=== PATIENT | female | born 1960 | race Caucasian/White ===

== ENCOUNTER → 2022-01-31 07:48 | Outpatient (BNVA) | payer OTHER, SELFPAY | PROVIDERS: PCP Internal Medicine Medical Oncology; Referring Provider Internal Medicine Medical Oncology; Visit Provider Nurse Practitioner ==

== ENCOUNTER 2022-02-13 06:21 | Outpatient (REF) | payer OTHER, SELFPAY ==
[2022-02-13 06:36] LABS: MANUAL DIFF FLAG NO
[2022-02-13 07:21] LABS: Basophils Absolute Auto 0.1 X10*3/uL (0.0-0.2); Basophils Percent Auto 0.9 % (0-2); Eosinophils Absolute Auto 0.1 X10*3/uL (0.0-0.4); Eosinophils Percent Auto 1.9 % (0-4); Hematocrit 40.3 % (37.0-47.0); Hemoglobin 13.3 g/dl (12.0-16.0); Imm Gran Abs Auto 0.01 X10*3/uL (0.00-0.03); Imm Gran Pct Auto 0.2 % (0.0-0.4); Lymphocytes Absolute Auto 2.6 X10*3/uL (1.2-4.9); Lymphocytes Percent Auto 44.9 % (20-40); Mean Corpuscular Hemoglobin 30.9 pg (27.0-33.0); Mean Corpuscular Volume 93.7 fL (80.0-98.0); Mean Platelet Volume 9.3 fL (9.4-12.3); Monocytes Absolute Auto 0.5 X10*3/uL (0.1-1.2); Monocytes Percent Auto 9.1 % (2-11); Neutrophils Absolute Auto 2.5 x10*3/uL (2.0-8.3); Platelet Count 320 X10*3/uL (160-400); Red Cell Distribution Width 11.8 % (11.0-16.0); White Blood Count 5.8 X10*3/uL (4.8-10.8)
[2022-02-13 08:00] LABS: Alanine Aminotransferase 17 U/L (0-31); Albumin Level 4.1 g/dL (3.5-5.0); Alkaline Phosphatase 59 U/L (39-117); Anion Gap 9 (12-20); Aspartate Amino Transferase 15 U/L (5-31); Bilirubin Total 0.8 mg/dL (0.0-1.0); Blood Urea Nitrogen 21 mg/dL (9-16); Calcium 9.8 mg/dL (8.4-10.2); Carbon Dioxide 30 mmol/L (22-29); Chloride 105 mmol/L (96-108); Estimated Glomerular Filt Rate > 60; Glucose Random 86 mg/dL (60-115); Potassium 4.4 mmol/L (3.3-5.1); Sodium 140 mmol/L (135-145); Total Protein 6.8 g/dL (6.5-8.0)
== END 2022-02-13 06:22 | disposition home or self-care (01) ==
LOC: HO.LAB 06:21
PROVIDERS: PCP Internal Medicine Medical Oncology; Visit Provider Nurse Practitioner
DX: Z12.11 Encounter for screening for malignant neoplasm of colon (principal)
CPT/HCPCS: 36415; 80053; 85025

== ENCOUNTER 2022-08-22 08:56 | Day surgery (SDC) | payer OTHER, SELFPAY ==
[2022-08-19 15:05] VITALS: BMI 25.6
--- NOTE | 2022-08-21 12:14 | P.CONAN_ITS ---
Documented by User: Lida Manzano NP 08/21/22 12:14 HPI - Anesthesia Eval Consult details Narrative: 61yo F for Colonoscopy PMFSH Active Problems Active Problems: All Active Problems (Updated 08/19/22 @ 15:03 by Claudine Crawford RN) ADHD (Acute) Depression (Acute) History of skin cancer (Acute) Nephrolithiasis (Acute) Overweight (Acute) Colon cancer screening (Acute) Family history of polyps in the colon (Acute) Past Medical History Medical History (Updated 08/19/22 @ 15:03 by Claudine Crawford RN) ADHD Depression Nephrolithiasis Skin cancer Surgical History Surgical History (Updated 08/19/22 @ 15:02 by Claudine Crawford RN) H/O breast biopsy H/O colonoscopy H/O cone biopsy of cervix H/O local excision of skin lesion Social History Social History Are you a primary health care law specialist to a significant other at home: Yes (daughter) Do you presently have visiting nurse or other home services: No Patient Tobacco Use Status: Former Tobacco user Quit Date: 25 yrs Use of substances other than those prescribed or required for medical reasons: No Have you been hit, kicked, punched, or otherwise hurt by someone within the past year? If so, by whom?: No Are you DNR?: No Advance Directives: No Advance Directives Information Provided: Yes Recently lost weight without trying: No Nutrition Risks: No Nutritional Risk Patient : No Meds Allergies Allergy/AdvReac Type Severity Reaction Status Date / Time morphine [MORPHINE] Allergy Intermediate HIVES Verified 08/19/22 15:02 Home Medications Medication Instructions Recorded Confirmed Last Taken Type cholecalciferol (vitamin D3) 125 125 mcg PO DAILY 01/31/22 Unknown History mcg (5,000 unit) capsule citalopram 10 mg tablet 10 mg PO DAILY 01/31/22 Unknown History multivitamin 1 tab PO DAILY 01/31/22 Unknown History vitamin B complex (B 1 tab PO DAILY 01/31/22 Unknown History Complex-Vitamin B12 tablet) Exam Exam Date and Time: August 21, 2022 1214 Height,Weight and Vital Signs: Height 5 ft 8.5 in Weight 77.564 kg Assessment and Plan Assessment Anesthesia Assessment: Chart Reviewed Documented by User: Yomaira Felix MD 08/22/22 10:09 [facility] Past Medical History Medical History (Updated 08/19/22 @ 15:03 by Claudine Crawford, [place]) ADHD Depression Nephrolithiasis Skin cancer Family History Family history of problems with anesthesia: No Surgical History Surgical History (Updated 08/19/22 @ 15:02 by Claudine Crawford, [place]) H/O breast biopsy H/O colonoscopy H/O cone biopsy of cervix H/O local excision of skin lesion History of Problems with Anesthesia: No Social History Social History Are you a primary health care law specialist to a significant other at home: Yes (daughter) Do you presently have visiting nurse or other home services: No Patient Tobacco Use Status: Former Tobacco user Quit Date: 25 yrs Use of substances other than those prescribed or required for medical reasons: No Have you been hit, kicked, punched, or otherwise hurt by someone within the past year? If so, by whom?: No Are you DNR?: No Advance Directives: No Advance Directives Information Provided: Yes Recently lost weight without trying: No Nutrition Risks: No Nutritional Risk Patient : No Meds Allergies Allergy/AdvReac Type Severity Reaction Status Date / Time morphine [MORPHINE] Allergy Intermediate HIVES Verified 08/19/22 15:02 Home Medications Medication Instructions Recorded Confirmed Last Taken Type cholecalciferol (vitamin D3) 125 125 mcg PO DAILY 01/31/22 Unknown History mcg (5,000 unit) capsule citalopram 10 mg tablet 10 mg PO DAILY 01/31/22 Unknown History multivitamin 1 tab PO DAILY 01/31/22 Unknown History vitamin B complex (B 1 tab PO DAILY 01/31/22 Unknown History Complex-Vitamin B12 tablet) Exam Airway Mallampati Class: II (Multiole caps throughout) TM Dist: >3cm Neck ROM: Full Heart: rrr Lungs: cta Assessment and Plan Assessment Anesthesia Assessment: Anesthesia Plan Discussed Final Anesthetic Review Family History of Problems with Anesthesia: No History of Problems with Anesthesia: No NPO: Yes ASA Class: II Final Preanesthetic Review: No Changes in Pt Med Stat, Meds/Allgs Chart Reviewed and Consent Obtained/Reviewed Patient Risk: Intermediate Procedure Risk: Intermediate Anesthetic Plan Anesthetic Plan: MAC: Disposition: Standard PACU
[2022-08-22] VITALS (9 sets, daily range): BP systolic 102–140; BP diastolic 50–92; PULSE 45–56; RESP 11–19; TEMP 36.2–37.3; O2SAT 97–100
--- NOTE | ~2022-08-22 | XR_ITS ---
EXAMINATION: XR ABDOMEN KUB CLINICAL INDICATION: Pain post colonoscopy COMPARISON: None TECHNIQUE: AP view of the abdomen. FINDINGS: The small and large bowel are slightly distended and filled with air. No free air is seen. There are biopsy clips projecting over the mid right colon and left distal colon. No calcifications are seen. Bony structures are unremarkable. XR/XR KUB IMPRESSION: No evidence of free air. Distended air-filled small and large bowel.
--- NOTE | ~2022-08-22 | XR_ITS ---
EXAMINATION: XR CHEST CLINICAL INFORMATION: Pain post colonoscopy. Rule out free air. COMPARISON: None TECHNIQUE: Frontal view of the chest was obtained. FINDINGS: No significant abnormality is noted involving the heart, lungs, mediastinum, bony thorax or soft tissues. No free air. XR/XR chest 1V IMPRESSION: Unremarkable examination.
--- NOTE | 2022-08-22 09:15 | MHC.SHP ---
Pre-Procedural Eval Section A Date of Service: 08/22/22 The patient is an INPATIENT: No The History & Physical has been completed within 30 days and I have reviewed it.: No Section B Chief Complaint: screening Details of Present Illness: Colon cancer screening, family history of colon polyps Relevant Family History (Specify if Yes): Yes Relevant Social History: None Present Medications: see Short Stay Collaborative assessment Medical History: Significant History (ADHD, depression, nephrolithiasis, history of skin cancer) History of Previous Operations: Relevant previous surgery/procedure and date(s) (H/O breast biopsy H/O cone biopsy of cervix H/O local excision of skin lesion) Allergies: Allergies Allergy/AdvReac Type Severity Reaction Status Date / Time morphine [MORPHINE] Allergy Intermediate HIVES Verified 08/19/22 15:02 Review of Systems Sugical H&P ROS: Negative: Constitution, Cardiovascular, Respiratory and Gastrointestinal Exam Surgical H&P Exam: Normal: Heart, Normal: Lungs, Normal: Extremities and Normal: Abdomen Plan Diagnosis/Plan: Unchanged I have reviewed the history and physical and performed a pertinent physical examination on my patient. No changes have occurred unless specified.
--- NOTE | 2022-08-22 10:15 | W.PM.OPN ---
Operative Note Operative Note Date of Service: 08/22/22 Narrative: Pre-op diagnosis: Colon cancer screening, family history of colon polyps - brother at age 50 yrs Post-op diagnosis:?other (Colon polyps, diverticulosis, hemorrhoids) Procedure: COLONOSCOPY TILL CECUM WITH BIOPSIES, SNARE POLYPECTOMY, SUBMUCOSAL INJECTION AND HEMOCLIP PLACEMENT Consent: Indications for the procedure and potential complications of bleeding, perforation, reaction to medications and missed diagnosis were discussed with the patient and informed consent was obtained. Instrument: Olympus PCF H 190 L variable stiffness pediatric colonoscope Monitoring: Vital signs and clinical assessment, intermittent blood pressure monitoring, continuous EKG monitoring, Pulse oximetry and Carbon Dioxide monitoring were done throughout the procedure. Colon withdrawl time was 28 minutes. Procedure: The patient was placed in the left lateral decubitis position and pre-procedure medications were administered. After a digital rectal examination of the ano-rectum, the video colonoscope was inserted into the rectum and advanced through the colon to the cecum. The colonoscope was slowly withdrawn in a retrograde panoramic fashion and the colon mucosa was carefully examined including a retroflexed view of the rectum. Findings and interventions are described below. Procedure Difficulty:? Colon was long and tortuous and there was some loop formation - no maneuvers required Findings: Terminal Ileum: Not evaluated Cecum:? Normal Ascending Colon:? A 4-5 mm sessile polyp removed with a cold bx. A 7-8 mm sessile polyp removed with a cold snare and polyp was not retrieved. A 2.5 cms flat polyp in the proximal AC?hepatic flexure at 80 cms raised with 3 cc of Orise solution and removed with a hot snare.? Polypectomy site was closed with resolution clip and marked with Rosalba ink. Transverse Colon:? A flat 2.5 to 3 cms polyp at 60 cms - raised with 5 cc of Orise solution and removed with a hot snare.? Polypectomy site was closed with 2 hemoclips and marked with Rosalba ink. Descending Colon:? Normal Sigmoid Colon:? A 10 mm sessile polyp removed with a hot snare. Moderate diverticulosis Rectum:? Normal Ano-rectum:? Small internal hemorrhoids Colon preparation: Good? Impression and Post Procedure Diagnosis: Colonoscopy Findings: Two small and three medium to large sized polyps removed Moderate diverticulosis seen in the sigmoid colon Small hemorrhoids on retroflexed exam. Of note:? CO2 tank became empty once cecum was reached and remainder of the procedure was performed using room air Plan: Await pathology results Patient has an appointment on 09/05/22 in the GI Clinic with? Felicitas Ochoa NP. Repeat Colonoscopy interval based on path results - in 1 year to check polypectomy sites in the ascending and transverse colon (if polyps are adenomatous) and 5 years if polyps are hyperplastic. Above findings were reviewed with the patient and colon polyps and diverticulosis handouts were given in the discharge area ADDENDUM: Pt complained of nausea, abdominal bloating and pain after procedure. KUB SHOWED: No evidence of free air. Distended air-filled small and large bowel. She was kept under observation in the PACU and abdominal pain gradually improved after pt was able to pass gas. Surgeon: Yasmine Degroot MD Anesthesia:?MAC (Dr Galicia) Was an Cloth Cutting Machine Operator used for this Procedure?:?Yes Cloth Cutting Machine Operator:?Jennyfer Nieves Estimated blood loss (mL):?0 Pathology:?other ( A. transverse colon polyp? B. ascending colon polyp? C. ascending colon polyp @ 80 cm? D. sigmoid polyp) Condition:?stable Disposition:?PACU
== END 2022-08-22 14:20 | disposition home or self-care (01) ==
PROVIDERS: PCP Internal Medicine Medical Oncology; Visit Provider Internal Medicine Gastroenterology
PROC: 0DJD8ZZ Inspection of Lower Intestinal Tract, Via Natural or Artificial Opening Endoscopic (ICD-10-PCS; CPT 45378; principal; 2022-08-22 10:00)
DX: Z12.11 Encounter for screening for malignant neoplasm of colon (principal); G89.18 Other acute postprocedural pain; R10.9 Unspecified abdominal pain; R14.0 Abdominal distension (gaseous); R11.0 Nausea; Z83.71 Family history of colonic polyps; D12.2 Benign neoplasm of ascending colon; D12.3 Benign neoplasm of transverse colon; K63.5 Polyp of colon; K57.30 Diverticulosis of large intestine without perforation or abscess without bleeding; K64.8 Other hemorrhoids; Z88.8 Allergy status to other drugs, medicaments and biological substances
CPT/HCPCS: 45385; 45380; 45381; 71045; 74018; 88305; J2405; J2550

== ENCOUNTER 2022-10-23 15:10 | Emergency (ER) | payer OTHER, SELFPAY ==
[2022-10-23 15:12] VITALS: BP 139/62; PULSE 84; RESP 18; TEMP 36.7; O2SAT 97; BMI 25.8
--- NOTE | 2022-10-23 15:55 | ED.GENADULT ---
HPI - General Adult General Chief complaint: General Medical <Kenyatta Ozuna LOIS - Last Filed: 10/23/22 16:39> Stated complaint: Severe rash biliteral legs ? cyst groin <Kenyatta OzunaLOIS - Last Filed: 10/23/22 16:39> Time Seen by Provider: 10/23/22 15:17 <Kenyatta OzunaLOIS - Last Filed: 10/23/22 16:39> Source: patient <Kenyatta Ozuna LOIS - Last Filed: 10/23/22 16:39> Mode of arrival: ambulatory <Kenyatta OzunaLOIS - Last Filed: 10/23/22 16:39> Limitations: no limitations <Kenyatta Ozuna LOIS - Last Filed: 10/23/22 16:39> History of Present Illness HPI narrative: Patient is a 62-year-old female presents emergency department for evaluation of a rash to the right medial calf. Initial onset was 5 days ago. Had a few small erythematous patches to the leg at 1st. The following day she developed to vesicles which she on room. She started applying Neosporin to this area. She then developed a more extensive red and erythematous rash surrounding the initial 2 vesicles. States that she has used Neosporin in the past without any reaction. Two days ago she went to urgent care and received a prescription for oral prednisone taper, and fluocinonide cream. Despite the use of this over the past 2 days she states that the rash is not improving. It is described as itchy. Without any drainage. Denies fevers, chills, numbness or tingling. She does state that she was bit by a tick earlier in the month, she was started on a 21 day course of doxycycline which she is still currently taking. <Kenyatta OzunaLOIS - Last Filed: 10/23/22 16:39> Related Data Home medications: Home Medications Medication Instructions Recorded Confirmed cholecalciferol (vitamin D3) 125 125 mcg PO DAILY 01/31/22 mcg (5,000 unit) capsule citalopram 10 mg tablet 10 mg PO DAILY 01/31/22 multivitamin 1 tab PO DAILY 01/31/22 vitamin B complex (B 1 tab PO DAILY 01/31/22 Complex-Vitamin B12 tablet) Previous Rx's Medication Instructions Recorded cephalexin 500 mg capsule 500 mg PO QID 7 days #28 caps 10/23/22 <Kenyatta Ozuna CNP - Last Filed: 10/23/22 16:39> Allergies/adverse reactions: Allergies Allergy/AdvReac Type Severity Reaction Status Date / Time morphine [MORPHINE] Allergy Intermediate HIVES Verified 08/19/22 15:02 <Kenyatta Ozuna CNP - Last Filed: 10/23/22 16:39> Review of Systems Review of Systems: skin: Rash as noted in HPI <Kenyatta Ozuna CNP - Last Filed: 10/23/22 16:39> Yes all other systems are reviewed and are negative <Kenyatta Ozuna CNP - Last Filed: 10/23/22 16:39> [facility] Past Medical History Attestation statement: The following information was validated with the patient. <Kenyatta Ozuna CNP - Last Filed: 10/23/22 16:39> Source: old records reviewed <Kenyatta Ozuna CNP - Last Filed: 10/23/22 16:39> Medical History: Medical History ADHD Depression Nephrolithiasis Skin cancer <Kenyatta Ozuna CNP - Last Filed: 10/23/22 16:39> Surgical History: Surgical History H/O breast biopsy H/O colonoscopy H/O cone biopsy of cervix H/O local excision of skin lesion <Kenyatta Ozuna CNP - Last Filed: 10/23/22 16:39> Social History Social History: Social History Are you a primary regular senior care provider to a significant other at home: Yes (daughter) Do you presently have visiting nurse or other home services: No Patient Tobacco Use Status: Former Tobacco user Quit Date: 25 yrs Smoked in Last 30 Days: No Use of substances other than those prescribed or required for medical reasons: No Advance Directives: No Advance Directives Information Provided: No Patient : No <Kenyatta Ozuna CNP - Last Filed: 10/23/22 16:39> Physical Exam ED Vital Signs: Vital Signs - 24 hr 10/23/22 15:12 10/23/22 16:03 Temperature 98.0 F Pulse Rate 84 84 Respiratory Rate 18 20 Blood Pressure 139/62 134/74 Pulse Oximetry 97 95 Oxygen Delivery Method Room Air Room Air BMI result Body Mass Index 25.8 <Kenyatta Ozuna CNP - Last Filed: 10/23/22 16:39> Vital Signs - 24 hr 10/23/22 15:12 10/23/22 16:03 Temperature 98.0 F Pulse Rate 84 84 Respiratory Rate 18 20 Blood Pressure 139/62 134/74 Pulse Oximetry 97 95 Oxygen Delivery Method Room Air Room Air BMI result Body Mass Index 25.8 <Kranthi Ochoa MD - Last Filed: 10/23/22 16:18> Appearance: Alert.?Oriented to person, place and time. No acute distress.?Normal affect. Neck: Normal inspection.? Neck supple.?? CVS: Heart sounds normal. Normal heart rate and rhythm.? Pulses normal.?? Respiratory: No respiratory distress.? Lung sounds clear to auscultation bilaterally?? Abdomen: Soft and non-tender. Skin: Skin warm and dry.? Normal skin color.? Extremities: No lower extremity edema.? No calf ttp? Neuro: Moves all extremities spontaneously. Sensation intact bilaterally. Ambulates with normal steady gait. <Kenyatta Ozuna CNP - Last Filed: 10/23/22 16:39> Course Course Course Narrative: Patient is a 62-year-old female who presents emergency department for evaluation of a rash as described in HPI. Currently taking oral doxycycline, she is also currently prescribed oral and topical steroids. Rash concerning for appears most consistent with contact dermatitis. Self-limiting and benign. Afebrile without tachycardia, no signs of systemic toxicity. Discussed plan for cleansing, continued use of medications as currently prescribed, Reviewed worrisome signs and symptoms to return back to the emergency department for. Advised outpatient follow-up with primary care provider next week. <Kenyatta Ozuna CNP - Last Filed: 10/23/22 16:39> Reevaluation(s) Reevaluation #1: Patient with contact dermatitis will continue topical steroids and prednisone <Kranthi Ochoa MD - Last Filed: 10/23/22 16:18> Time: 16:18 <Kranthi Ochoa MD - Last Filed: 10/23/22 16:18> Medications Administered Discontinued Medications Generic Name Dose Route Start Last Admin Trade Name Freq PRN Reason Stop Dose Admin Cephalexin HCl 500 mg 10/23/22 15:55 10/23/22 16:04 Cephalexin 500 Mg Capsule PO 10/23/22 15:56 500 mg ONCE ONE Administration <Kenyatta Ozuna CNP - Last Filed: 10/23/22 16:39> Medications Administered Discontinued Medications Generic Name Dose Route Start Last Admin Trade Name Freq PRN Reason Stop Dose Admin Cephalexin HCl 500 mg 10/23/22 15:55 10/23/22 16:04 Cephalexin 500 Mg Capsule PO 10/23/22 15:56 500 mg ONCE ONE Administration <Kranthi Ochoa MD - Last Filed: 10/23/22 16:18> Medical Decision Making Medical Records Medical records reviewed: Yes I reviewed the patient's medical records. <Kenyatta Ozuna CNP - Last Filed: 10/23/22 16:39> Discharge Plan Discharge Clinical Impression: Contact dermatitis <Kenyatta Ozuna CNP - Last Filed: 10/23/22 16:39> Patient Disposition: Home, Self-Care <Kenyatta Ozuna CNP - Last Filed: 10/23/22 16:39> Instructions: Contact Dermatitis (ED) <Kenyatta Ozuna CNP - Last Filed: 10/23/22 16:39> Additional Instructions: Gently cleanse the skin with warm water and mild non scented soap twice daily. Continue taking oral steroids as prescribed, the only ointment that should be applied is the topical steroid cream after cleansing. Leave it open to air. Please follow-up with your primary care provider next week for re-evaluation. You may return to emergency department with any new or worsening symptoms or concerns. <Kenyatta Ozuna CNP - Last Filed: 10/23/22 16:39> Prescriptions: New cephalexin 500 mg capsule 500 mg PO QID 7 Days Qty: 28 0RF No Action citalopram 10 mg tablet 10 mg PO DAILY multivitamin Tablet 1 tab PO DAILY cholecalciferol (vitamin D3) 125 mcg (5,000 unit) capsule 125 mcg PO DAILY vitamin B complex [B Complex-Vitamin B12] Tablet 1 tab PO DAILY <Kenyatta Ozuna CNP - Last Filed: 10/23/22 16:39> Referrals: Odilon Jordan MD [Primary Care Provider] - <Kenyatta Ozuna CNP - Last Filed: 10/23/22 16:39>
[2022-10-23 16:03] VITALS: BP 134/74; PULSE 84; RESP 20; O2SAT 95
[2022-10-23] MEDS: cephALEXin 500 MG CAPSULE PO (16:04)
== END 2022-10-23 16:42 | disposition home or self-care (01) ==
PROVIDERS: Emergency Provider Emergency Medicine; PCP Internal Medicine Medical Oncology
DX: L25.9 Unspecified contact dermatitis, unspecified cause (principal); Z87.891 Personal history of nicotine dependence; Z85.828 Personal history of other malignant neoplasm of skin
CPT/HCPCS: 99283; 99284

== ENCOUNTER 2024-05-08 13:52 | Emergency (ER) | payer OTHER, SELFPAY ==
--- NOTE | ~2024-05-08 | CT_ITS ---
EXAMINATION: CT HEAD WITHOUT CONTRAST CT CERVICAL SPINE WITHOUT CONTRAST CLINICAL INFORMATION: Fall with head strike COMPARISON: None TECHNIQUE: Contiguous axial imaging was performed from the skull base to vertex without intravenous administration of contrast. Contiguous axial imaging was performed from the upper chest through the skull base without intravenous administration of contrast. Coronal and sagittal reformats were obtained at the acquisition workstation. This CT examination was performed using dose optimization techniques as appropriate, variously including the following: *Automated exposure control *Adjustment of mA and/or kV according to patient size (this includes techniques or standardized protocols for targeted exams where dose is matched to indication/reason for exam; i.e. extremities or head) *Use of iterative reconstruction technique DLP: 947 mGy-cm FINDINGS: Head: There is no evidence of acute intracranial hemorrhage or edematous territorial infarction. Navarro-white matter differentiation appears preserved. No significant chronic microangiopathy. The ventricles and cortical sulci are proportional without significant volume loss. No evidence for obstructive hydrocephalus. No abnormal mass effect or midline shift. No extra-axial fluid collections. Small midline parieto-occipital scalp hematoma. No acute osseous abnormality. The mastoid air cells and visualized paranasal sinuses are clear. Cervical Spine: The atlantooccipital and atlantoaxial articulations remain well aligned. Reversal of the normal cervical lordosis. Vertebral body heights are maintained. 3 mm retrolisthesis of C5 over C6. 2 mm anterolisthesis of C4 over C5. Minimal retrolisthesis of C6 over C7. Multilevel cervical spondylosis with marginal osteophytes, endplate sclerosis and intervertebral disc space narrowing most pronounced at C5-C6 through C7-T1. Degenerative facet arthropathy at multiple levels with fusion across the left facet joints at C2-C3 and C4-C5. No evidence of acute fracture or subluxation. There is no prevertebral soft tissue swelling. 1.8 cm partially exophytic hypodense nodule in relation to right lobe of thyroid, series 12 image 284 and series 15, image 15. The lung apices demonstrate mild biapical scarring. CT/CT cervical spine wo IV con IMPRESSION: 1. No acute intracranial pathology. Small midline parieto-occipital scalp hematoma. 2. No acute fracture or traumatic subluxation involving the cervical spine. Multilevel cervical spondylosis as detailed. 3. 1.8 cm partially exophytic hypodense nodule in relation to right lobe of thyroid. Further evaluation with gated thyroid ultrasound is recommended.
[2024-05-08 14:02] VITALS: BP 128/71; BP 145/70; PULSE 59; PULSE 68; RESP 16; TEMP 36.8; O2SAT 98; O2SAT 99; BMI 27.9
--- NOTE | 2024-05-08 14:32 | ED_ITS ---
HPI - General Adult General Chief complaint: Fall Stated complaint: FALL HIT BACK OF HEAD Time Seen by Provider: 05/08/24 14:31 Source: patient, EMS and RN notes reviewed Mode of arrival: EMS Limitations: no limitations History of Present Illness ED Provider: Hardeep Guy NP HPI narrative: Patient is a 63-year-old female presenting to the emergency department after a slip and fall at work, complaining of headache. She reports that she works for a [employer] and was walking inside an empty pool while cleaning it out. States the bottom of the pool was covered in a slippery green algae which caused her to slip and fall. States that she fell directly backwards striking her head on the concrete. Denies loss of consciousness. She is not anticoagulated. Denies neck pain. Reports chronic low back pain for which she is on gabapentin. Denies blurred vision, double vision or other visual changes. Denies nausea or vomiting. MD complaint: head injury Onset (ago): minute(s) Location: head Severity: mild Quality: aching Pain Consistency: constant Associated symptoms: denies other symptoms Treatments prior to arrival: none Related Data Home Medications ?Medication ?Instructions ?Recorded ?Confirmed cholecalciferol (vitamin D3) 125 125 mcg PO DAILY 01/31/22 mcg (5,000 unit) capsule citalopram 10 mg tablet 10 mg PO DAILY 01/31/22 multivitamin 1 tab PO DAILY 01/31/22 vitamin B complex (B 1 tab PO DAILY 01/31/22 Complex-Vitamin B12 tablet) Previous Rx's ?Medication ?Instructions ?Recorded cephalexin 500 mg capsule 500 mg PO QID 7 days #28 caps 10/23/22 baclofen 10 mg tablet 10 mg PO BID #30 tabs 03/20/24 ibuprofen 800 mg tablet 800 mg PO TID #30 tabs 03/20/24 cyclobenzaprine 5 mg tablet 5 mg PO TID PRN muscle spasm #10 05/08/24 tabs Allergies Allergy/AdvReac Type Severity Reaction Status Date / Time morphine [MORPHINE] Allergy Intermediate HIVES Verified 05/08/24 14:04 Review of Systems Review of Systems: As per HPI. Yes all other systems are reviewed and are negative Constitutional: Constitutional: Reports as per HPI [facility] Past Medical History Medical History ADHD Depression Nephrolithiasis Skin cancer Surgical History H/O breast biopsy H/O colonoscopy H/O cone biopsy of cervix H/O local excision of skin lesion Social History Social History Are you a primary care connector to a significant other at home: Yes (daughter) Do you presently have visiting nurse or other home services: No Patient Tobacco Use Status: Former Tobacco user Smoked in Last 30 Days: No Use of substances other than those prescribed or required for medical reasons: Yes Substance Use Type: Marijuana Advance Directives: No Advance Directives Information Provided: No Do you have a plan to hurt others: No Plan Patient : No Physical Exam ED Vital Signs: Vital Signs - 24 hr 05/08/24 14:02 Temperature 98.2 F Pulse Rate 59 Respiratory Rate 16 Blood Pressure 128/71 Pulse Oximetry 99 Oxygen Delivery Method Room Air BMI result Body Mass Index 27.9 Vital signs have been reviewed and appear to be correct. Blood pressure normal. Heart rate normal. Respiratory rate normal. Temperature normal. Oxygen saturation normal. Const General: cooperative, healthy appearing and no acute distress Orientation/consciousness: oriented to person, oriented to place, oriented to time and patient oriented x3 Limitations: no limitations HENMT Head: Yes No palpable skull fracture present, Yes normocephalic, Yes atraumatic, No Abreu's sign, No raccoon eyes and No periorbital ecchymosis Ears: external ears normal, TM's normal bilaterally and EAC's normal General nose exam: Normal external nose present Face and sinus: Yes face symmetric Mouth: oropharynx normal and moist mucous membranes Throat: Yes uvula midline Eyes Pupils: Equal, round and reactive pupils present EOM: EOMs intact bilaterally Neck Neck: Yes normal visual inspection and Yes supple Resp Effort & Inspection: normal respiratory effort and able to speak in complete sentences Auscultation: clear to auscultation bilaterally Cardio Rate: regular rate Rhythm: regular rhythm Heart sounds: S1 normal heart sound present and S2 normal heart sound present GI Palpation (GI): Soft to palpation and nontender Auscultation: normoactive bowel sounds General: Yes no CVA tenderness Back/Spine/Pelvis Back: no CVA tenderness Cervical Spine: collar present Skin General skin exam: elasticity normal and turgor normal Neuro General: oriented to person, oriented to place, oriented to time, patient oriented x3, tone normal, moves all extremities, Normal light touch and pain sensation, no focal motor deficits, CN's II-XI intact bilaterally and deep t endon reflexes 2+ bilaterally Cranial nerves: Yes Equal, round and reactive pupils present Cognition (Neuro): normal cognition Motor exam (neuro): 5/5 motor strength present throughout, Normal motor muscle tone present throughout and Motor abnormalities not present Extrem General: Yes full ROM, Yes no pedal edema and Yes no calf tenderness Psych Mental Status: mental status grossly normal Affect: normal affect Thought process: Normal thought process present Medical Decision Making Medical Decision Making [facility] Narrative: Patient is a 63-year-old female presenting to the emergency department after a slip and fall at work, complaining of headache. On exam patient is awake, A+Ox3, VS WNL, afebrile, normal neurological exam without focal deficits, physical exam findings as above. Given reported symptoms and physical exam findings, initial differential includes contusion, concussion, ICH, skull or cervical vertebral fracture or subluxation. CT head and C-spine notable for small occipital hematoma, no ICH, skull fracture, cervical vertebral fracture or subluxation. My interpretation is in agreement with the radiologist's interpretation. Results discussed with patient and all questions answered. Will send prescription for cyclobenzaprine, advised patient she will likely feel more uncomfortable tomorrow and the following day, advised Tylenol ibuprofen. Instructed patient to follow-up with PCP regarding nodule noted on CT. Advised patient to [facility]. Return precautions discussed. Patient verbalized understanding of and agreement with plan. Differential Diagnosis Differential Diagnoses: The differential diagnosis associated with the presentation includes As per MDM. Admission/Observation Consideration of admission/observation: Escalation of care including admission/observation considered Patient would have been admitted to the hospital had their work up had any findings where hospital admission was appropriate and their clinical presentation warranted hospital admission. Independent Interpretation I performed an independent interpretation of an: CT Scan Interpretation: CT head and C-spine notable for small occipital hematoma, no ICH, skull fracture, cervical vertebral fracture or subluxation. Incidental nodule to right of thyroid. Radiology Impression Discussion of test interpretation with radiology: I have reviewed the ra diologist's reading. Radiologist Impression: CT/CT head/brain wo IV con IMPRESSION: 1. No acute intracranial pathology. Small midline parieto-occipital scalp hematoma. 2. No acute fracture or traumatic subluxation involving the cervical spine. Multilevel cervical spondylosis as detailed. 3. 1.8 cm partially exophytic hypodense nodule in relation to right lobe of thyroid. Further evaluation with gated thyroid ultrasound is recommended. External Record Review External record reviewed: Inpatient record, Office record and Outpatient record Prescription Management I considered prescription management with: Other Discharge Plan Discharge Clinical Impression: Hematoma of occipital region of scalp Patient Disposition: Home, Self-Care Instructions: Contusion in Adults (ED), Fall Prevention (ED) Additional Instructions: You have been evaluated in the emergency department today for a head injury. Your CT scan did not show signs of bleed or fractures in your head. You have a small hematoma, also known as a bruise, to the back of your head. You can apply ice to the area for 10-15 minutes at a time several times daily, do not apply i ce directly to skin. We recommend you take 600 mg ibuprofen every 6 hours or Tylenol 650 mg every 6 hours as needed for pain. If needed, you can alternate these medications so that you take 1 medication every 3 hours. For instance, at noon take ibuprofen, then at 3:00 p.m. take Tylenol, then at 6:00 p.m. take ibuprofen. You are being prescribed a muscle relaxer which you can take every 8 hours as needed for muscle spasms, do not drink alcohol while taking this medication as it can cause excessive drowsiness. Please schedule an appointment with for follow-up with your primary care provider as soon as possible. There was an incidental finding of a nodule to the right of your thyroid. Further evaluation of this with your PCP is recommended. Return to the emergency department if you experience worsening or uncontrolled pain, vision changes, recurrent vomiting, difficulty with normal activities, abnormal behavior, difficulty walking, numbness, weakness, or any other concerning symptoms. Follow up with [facility]. [facility] [address] [place] [address] Prescriptions: New cyclobenzaprine 5 mg tablet 5 mg PO TID PRN (Reason: muscle spasm) Qty: 10 0RF No Action ibuprofen 800 mg tablet 800 mg PO TID Qty: 30 0RF baclofen 10 mg tablet 10 mg PO BID Qty: 30 0RF cephalexin 500 mg capsule 500 mg PO QID 7 Days Qty: 28 0RF citalopram 10 mg tablet 10 mg PO DAILY multivitamin Tablet 1 tab PO DAILY cholecalciferol (vitamin D3) 125 mcg (5,000 unit) capsule 125 mcg PO DAILY vitamin B complex [B Complex-Vitamin B12] Tablet 1 tab PO DAILY Stand Alone Forms: Work/School Release Print Language: Syrian
[2024-05-08 16:46] VITALS: BP 128/71; PULSE 59; RESP 16; TEMP 36.8; O2SAT 99
== END 2024-05-08 16:48 | disposition home or self-care (01) ==
PROVIDERS: Emergency Provider Emergency Medicine; PCP Internal Medicine Medical Oncology
DX: S00.03XA Contusion of scalp, initial encounter (principal); W01.0XXA Fall on same level from slipping, tripping and stumbling without subsequent striking against object, initial encounter; Y93.9 Activity, unspecified; Y92.89 Other specified places as the place of occurrence of the external cause; Y99.9 Unspecified external cause status
CPT/HCPCS: 70450; 72125; 99283; 99284

== ENCOUNTER 2025-11-29 07:29 | Outpatient (REF) | payer OTHER, SELFPAY ==
--- OUTSIDE RECORDS SUMMARY | 2024-07-05 08:45 | XMS_ITS ---
Author Organization Odilon Jordan III, MD Address [address] [place] [address] [place] [address] Care Team Providers Care Gear Inspector Name Role Phone Dr. Odilon Jordan III Primary Care Provider Allergies Allergen (clinical drug ingredient) Drug/Non Drug Allergy documented on EMR Reaction Allergy Type Onset Date Status morphine Morphine Sulfate hives Drug Allergy Active REASON FOR VISIT Viral syndrome, History of melanoma, Depression, ADHD Medications Medication SIG (Take, Route, Frequency, Duration) Notes Start Date End Date Status dexAMETHasone 2 MG 1 tablet Orally ever y 12 hrs 03/23/2024 Active Citalopram Hydrobromide 10 MG TAKE 1 TABLET BY MOUTH EVERY DAY Active Meclizine HCl 25 MG 1 tablet as needed Orally every 8 hrs as needed for vertigo 06/29/2023 Active Ibuprofen 600 MG Oral Act robert Gabapentin 300 MG 1 capsule Orally thr ee times a day 03/23/2024 Active Social History Tobacco Use: Social History Observation Description Date Details (start date - stop date) Former Smoker NA - NA Sex Assigned At : Social History Observation Description Sex Assigned At Female Tobacco Use/Smoking Question Answer Notes Patient is a former smoker How long has it been since you last smoked? > 10 years Additional Findings: Tobacco Non-User Ex-cigaret te smoker Vital Signs Height 68 in 07/05/2024 Weight 182 lbs 07/05/2024 BMI 27.67 kg/m2 07/05/2024 Encounters Encounter Location Date Provider Diagnosis Odilon Jordan III, MD [address] [place] [address] [place] [address] 07/05/2024 Odilon Jordan Acute viral syndrome B34.9 ; Reactive depression F32.9 ; History of melanoma Z85.820 ; Attention deficit hyperactivity disorder (ADHD), predominantly inattentive type F90.0 ; Overweight (BMI 25.0-29.9) E66.3 and Former smoker Z87.891 Assessments Encounter Date Diagnosis (ICD Code) Assessment Notes Treat ment Notes Treatment Clinical Notes 07/05/2024 Acute viral syndrome (ICD-10 - B34.9) She will recover soon. She will use acetaminophen. I recommended rest and good nutrition. 07/05/2024 Reactive depression (ICD-10 - F32.9) Her depression is minimal today. She continues on her medication. She will notify me once if it recurs. 07/05/2024 History of melanoma (ICD-10 - Z85.820) No sign of recurrent melanoma or of a new primary was detected today. 07/05/2024 Attention deficit hyperactivity disorder (ADHD), predominantly inattentive type (ICD-10 - F90.0) She says that she is conducting all of the activities of daily life without impairment at this time. She feels healthy and well and no change in her treatment is needed or desired. 07/05/2024 Overweight (BMI 25.0-29.9) (ICD-10 - E66.3) Her body mass index is 27. She remains overweight. We discussed her diet and nutrition. We made a plan to lose weight at a rate of one half of a pound per week. 07/05/2024 Former smoker (ICD-10 - Z87.891) She is highly motivated not to smoke and we discussed a strategy for prevention of relapse in times of illness and distress. Plan Of Treatment Medication Medication Name Sig Start Date Stop Date Notes dexAMETHasone 2 MG 1 tablet Orally every 12 hrs 03/23/2024 Citalopram Hydrobromide 10 MG TAKE 1 TAB LET BY MOUTH EVERY DAY Meclizine HCl 25 MG 1 tablet as needed O rally every 8 hrs as needed for vertigo 06/29/2023 Ibuprofen 600 MG Oral Gabapentin 300 MG 1 capsule Orally thr ee times a day 03/23/2024 Next Appt Details Follow Up: As Scheduled, Maren son: OV Provider Name:Odilon Jordan , 12/01/2025 09:00:00 AM, [address] [place] [address] [address], [place], [phone], Provider Name:Odilon Macdonaldne , 06/05/2026 10:30:00 AM, [address] [place] [address] [address], [place], [address], Progress Notes * Gilma CAMPBELL LDOB: [birth year] (63 yo F)Acc No.[id number]:07/05/2024 Patient: Gilma Burch Provider: Adán Jordan MD :1960 A ge:63 Y S ex:Female Date:07/05/2024 Address:[address] [place] [id number] Subjective: * Chief Complaints: * V iral syndromeHistory of melanomaDepressionADHD * HPI: * : This telehealth visit took place over 15 minutes with the patient at home and me in my office. She gave consent for billing. She recently developed a severe sore throat and fever. She went to an urgent care center where she was told she did not have streptococcal pharyngitis. A test for Covid was negative. She is now beginning to feel better. The fever has resolved. She is able to eat and drink. She continues to feel ill. A repeat follow-up visit in a few days was arranged. She was instructed to use acetaminophen and rest. Telehealth L ocation of provider rendering services: { ...} [address] [place] [address] [address] [facility] [address] L ocation of patient: a ddress listed in demographics for today's visit P atient identification confirmed using: N sushant, T elehealth method: T elephone only. Patient not visible to care provider. C onsent: P atient verbally consented to treatment, Patient verbally consented to billing insurance company, Patient informed of any privacy concerns related to method of visit T otal time spent with patient (mins) 1 5 * ROS: G eneral/Constitutional: pain o nly normal aches and pains. C hills d enies.?Fatigue a dmits. F ever d enies. E NT: Decreased hearing d enies. R espiratory: Cough n on-productive. C ardiovascular: Chest pain with exertion d enies. D yspnea on exertion?denies. S hortness of breath d enies. G astrointestinal: Constipation o ccasional. D ecreased appetite d enies. D iarrhea d enies. H eartburn d enies. N ausea d enies. R ectal bleeding d enies. V omiting d enies. H ematology: bruising d enies. p etechiae d enies. S wollen glands n one have been noted. G enitourinary: Frequent urination a small amount. M usculoskeletal: Muscle aches d enies. P ainful joints d enies. S ciatica d enies. W eakness d enies. S kin: Itching d enies. R tamar d enies. S kin lesion(s)?denies. N eurologic: Difficulty speaking d enies. D izziness d enies.?Headache d enies. L ow back pain d enies. P sychiatric: Depressed mood d enies. * Medical History: * Surgical History: b reast biopsy cone biopsy of cervix, high risk squamous intraepithelial lesion 617/20excision melanoma, left thigh 2000colonoscopy at [facility] 07/2022 * Hospitalization/Major Diagno stic Procedure: D enies Past Hospitalization * Family History: F ather: 83 yrs, parkinsons,. M other: 74 yrs, glioblastoma multiform, diagnosed with Cancer. 1 daughter(s) - healthy. . She denies any history of hereditary malignancy. There is no family history of breast cancer ovarian cancer. She has 1 daughter who is healthy and well. She is not aware of any family history of mental illness or substance abuse or addiction. * Social History: T obacco Use: T obacco Use/Smoking P atient is a f ormer smoker H ow long has it been since you last smoked??> 10 years A dditional Findings: Tobacco Non-User E x-cigarette smoker S he she is but is being . She has a 12-year-old daughter. She does not smoke cigarettes. She was born in [place]. She has not a [employer]. She identifies as LGBT. * Medications: T akingGabapentin 300 MG Capsule 1 capsule Orally three times a dayIbuprofen 600 MG Tablet Oral Meclizine HCl 25 MG Tablet 1 tablet as needed Orally every 8 hrs as needed for vertigoCitalopram Hydrobromide 10 MG Tablet TAKE 1 TABLET BY MOUTH EVERY DAY dexAMETHasone 2 MG Tablet 1 tablet Orally every 12 hrsMedication List reviewed and reconciled with the patientTaking Gabapentin 300 MG Capsule 1 capsule Orally three times a dayTaking Ibuprofen 600 MG Tablet Oral Taking Meclizine HCl 25 MG Tablet 1 tablet as needed Orally every 8 hrs as needed for vertigoTaking Citalopram Hydrobromide 10 MG Tablet TAKE 1 TABLET BY MOUTH EVERY DAY Taking dexAMETHasone 2 MG Tablet 1 tablet Orally every 12 hrsMedication List reviewed and reconciled with the patient * Allergies: M orphine Sulfate: hivesno[Allergies Verified] Objective: * Vitals: H t: 68, Wt: 182, BMI:27.67, Ht-cm: 172.72, Wt-k.55. Assessment: * Assessment: 1. A cute viral syndrome - B34.9 (Primary), She will recover soon. She will use acetaminophen. I recommended rest and good nutrition. 2 . R eactive depression - F32.9, Her depression is minimal today. She continues on her medication. She will notify me once if it recurs. 3 . H istory of melanoma - Z85.820, No sign of recurrent melanoma or of a new primary was detected today. 4. A ttention deficit hyperactivity disorder (ADHD), predominantly inattentive type - F90.0, She says that she is conducting all of the activities of daily life without impairment at this time. She feels healthy and well and no change in her treatment is needed or desired. 5 . O verweight (BMI 25.0-29.9) - E66.3, Her body mass index is 27. She remains overweight. We discussed her diet and nutrition. We made a plan to lose weight at a rate of one half of a pound per week. 6 .?Former smoker - Z87.891, She is highly motivated not to smoke and we discussed a strategy for prevention of relapse in times of illness and distress. Plan: * Treatment: * Procedure Codes: 9 2146 PHONE E/M BY PHYS 11-20 MIN * Preventive Medicine: Counseling: C are goal follow-up plan: Counseling for abnormal BMI given Y es Above Normal BMI Follow-up D ietary management education, guidance, and counseling S moking/Tobacco Use Patient counseled on the dangers of tobacco use and urged to quit. 0 07/05/2024 * Follow Up: A s Scheduled (Reason: OV) * Images: * Sign off status: Completed true * Provider: Adán Jordan MD Date: 0 07/05/2024 Generated for Erin marie/Irish/Berlinsmrodo on: 1 07:31 AM EST History and Physical Notes * HPI (History of Present Illness) Category Sub-Category Detail Notes Telehealth Location of [facility] rendering services:: {...} [address] [place] [address] [address] [place] [id number] Location of patient:: address listed in demographics for today's visit Patient identification confirmed using:: Name, Telehealth method:: Telephone only. Yoselin ent not visible to care provider. Consent:: Patient verbally c onsented to treatment, Patient verbally consented to billing insurance company, Patient informed of any privacy concerns related to method of visit Total time spent with patient (mins): 15
--- OUTSIDE RECORDS SUMMARY | 2024-08-09 06:00 | XMS_ITS ---
Author Organization Odilon Jordan III, MD Address [address] [facility] [address] Care Team Providers Care Cell Feed Department Supervisor Name Role Phone Dr. Odilon Jordan III Primary Care Provider Allergies Allergen (clinical drug ingredient) Drug/Non Drug Allergy documented on EMR Reaction Allergy Type Onset Date Status morphine Morphine Sulfate hives Drug Allergy Active REASON FOR VISIT Low back pain, 3 of malignant melanoma, Depression, ADHD Medications Medication SIG (Take, Route, Frequency, Duration) Notes Start Date End Date Status Gabapentin 300 MG 1 capsule Orally thr ee times a day 03/23/2024 Active Ibuprofen 600 MG Oral Act robert Meclizine HCl 25 MG 1 tablet as needed Orally every 8 hrs as needed for vertigo 06/29/2023 Active Citalopram Hydrobromide 10 MG TAKE 1 TABLET BY MOUTH EVERY DAY Active dexAMETHasone 2 MG 1 tablet Orally ever y 12 hrs 03/23/2024 Active Social History Tobacco Use: Social [...] Tobacco Non-User Ex-cigaret te smoker Vital Signs Blood pressure systolic 117 mm Hg 08/09/20 24 Blood pressure diastolic 67 mm Hg 024 Heart Rate 53 /min 08/09/2024 Height 68 in 08/09/2024 Weight 177 lbs 08/09/2024 BMI 26.91 kg/m2 08/09/2024 Encounters Encounter Location Date Provider Diagnosis Odilon Jordan III, MD [address] [place] [address] [address] [place], [place] [address] 08/09/2024 Odilon Jordan History of melanoma Z85.820 ; Overweight (BMI 25.0-29.9) E66.3 ; Postmenopausal Z78.0 ; Atypical ductal hyperplasia of left breast N60.92 ; Reactive depression F32.9 ; Former smoker Z87.891 and Cervical intraepithelial neoplasia N87.9 Assessments Encounter Date Diagnosis (ICD Code) Assessment Notes Treat ment Notes Treatment Clinical Notes 08/09/2024 History of melanoma (ICD-10 - Z85.820) There was no sign today of recurrence or new primary. 08/09/2024 Overweight (BMI 25.0-29.9) (ICD-10 - E66.3) She remains slightly overweight. We have discussed diet and nutrition. We made a plan to lose weight at a rate of one half of a pound per week. 08/09/2024 Postmenopausal (ICD- 10 - Z78.0) She remains stable without bleeding. She is going to have a hysterectomy for atypical cells. A bone density test will be ordered. 08/09/2024 Atypical ductal hyperplasia of left breast (ICD-10 - N60.92) A breast exam today was normal. 08/09/2024 Reactive depression (ICD-10 - F32.9) Her depression is minimal today. She continues on her medication. She will notify me once if it recurs. 08/09/2024 Former smoker (ICD-1 0 - Z87.891) She is highly motivated not to smoke and we discussed a strategy for prevention of relapse in times of illness and distress. 08/09/2024 Cervical intraepithelial neoplasia (ICD-10 - N87.9) Because of the persistent abnormality she has been scheduled for a hysterectomy next September. Plan Of Treatment Medication Medication Name Sig Start Date Stop Date Notes Gabapentin 300 MG 1 capsule Orally thr ee times a day 03/23/2024 Ibuprofen 600 MG Oral Meclizine HCl 25 MG 1 tablet as needed O rally every 8 hrs as needed for vertigo 06/29/2023 Citalopram Hydrobromide 10 MG TAKE 1 TAB LET BY MOUTH EVERY DAY dexAMETHasone 2 MG 1 tablet Orally every 12 hrs 03/23/2024 Pending Test Test Name Order Date PROFILE, FASTING (COMPREHENSIVE METABOLI C) 08/09/2024 CBC w DIFF 08/09/2024 Lipid Panel 08/09/2024 Next Appt Details Follow Up: 2 month preop christian t, Reason: Pre op review labs Provider Name:Odilon Jordan , 12/01/2025 09:00:00 AM, [address] [place] [address] [address], [place], [address], Provider Name:Odilon Jordan , 06/05/2026 10:30:00 AM, [address] [place] [address] [address], [place], [address], Progress Notes * Gilma CAMPBELL LDOB: [birth year] (63 yo F)Acc No.[id number]:08/09/2024 Progress Notes Patient: Gilma Burch Provider: Adán Jordan MD :1960 A ge:63 Y S ex:Female Date:08/09/2024 Address:[address] [place], [place] [id number] Subjective: * Chief Complaints: * L ow back pain3 of malignant melanomaDepressionADHD * HPI: C OVID-19 Screening: ent did scope and says fine, skin chest mild cough, some anxiety 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 She has recovered from her recent viral syndrome. She did see ENT and had an in direct laryngoscopy with no findings. She continues to have a mild cough and mild anxiety. She has been to [facility] and has persistent atypical cells on a Pap smear. She is scheduled for a hysterectomy October 14, 2024. She has a history of cone biopsy or premalignant cells. She had a recent colposcopy by Dr. Davis that showed persistent [facility] grade dysplasia. Questions H ave you experienced fever, chills, cough, sore throat, shortness of breath, difficulty breathing, muscle aches, loss of taste or smell? N o H ave you been exposed to the virus within the last 10 days? N o H ave you travelled internationally in the last 10 days? N o H ave you been exposed to COVID-19 in the past? Y es * ROS: G eneral/Constitutional: pain o nly normal aches and pains. C hills d enies.?Fatigue a dmits. F ever d enies. E NT: Decreased hearing d enies. R espiratory: Cough d enies. C ardiovascular: Chest pain with exertion d enies. D yspnea on exertion?denies. S hortness of breath d enies. G astrointestinal: Constipation d enies. D ecreased appetite d enies.?Diarrhea d enies. H eartburn d enies. N ausea d enies. R ectal bleeding?denies. V omiting d enies. H ematology: bruising d enies. p etechiae d enies. S wollen glands n one have been noted. G enitourinary: Frequent urination d enies. M usculoskeletal: Muscle aches d enies. P [...] lesion 617/20excision melanoma, left thigh 2000colonoscopy at [facility] 2Colposcopy, Dr. Davis, persistent high-grade dysplasia June 2024 * Hospitalization/Major Diagno stic Procedure: D enies [...] obacco Use/Smoking P atient is a f jonathan smoker H ow long has it been since you last smoked??> 10 years A dditional Findings: Tobacco Non-User E x-cigarette smoker S he she is but is being . She has a 12-year-old daughter. She does not smoke cigarettes. She was born in [place]. She has not a Anabaptist. She identifies as LGBT. * Medications: T [...] Objective: * Vitals: H t: 68, Wt: 177, BMI:26.91, BP: 117/67, HR: 53, Ht-cm: 172.72, Wt-k.29. * P ast Orders: Imaging:MAMMOGRAM DIGITAL BI LATERAL SCREEN * Order Date 05/19/2024 10/01/2021 Result: undefined * Examination: G eneral Examination: GENERAL APPEARANCE: p leasant, well nourished, well developed, in no acute distress, calm and relaxed , overweight , woman. HEAD: a traumatic, normocephalic. EYES: e latoya, perrla, anicteric, conjugate. EARS: n ormal. NOSE: s eptum intact. ORAL CAVITY: n ormal, unremarkable. NECK/THYROID: n o jugular venous distention, no carotid bruit, thyroid normal. LYMPH NODES: n o enlarged lymph nodes,spleen normal. SKIN: n o suspicious lesions, anicteric, Healed scars, no pigmented lesions. HEART: n o clicks, gallops, murmurs, or rubs, regular rhythm, S1, S2 normal, no s3, or vascular bruits. LUNGS: c lear to auscultation . BREASTS: n o masses palpable bilaterally , no dimpling , no discharge , no drainage , symmetrical , nontender. ABDOMEN: b owel sounds normal, no ascites, no organomegaly, no mass. RECTAL EXAM: n ot examined. MUSCULOSKELETAL: e xtremities unremarkable, no clubbing, cyanosis or edema. PERIPHERAL PULSES: n ormal. NEUROLOGIC: a lert and oriented, cranial nerves 2-12 grossly intact, deep tendon reflexes 2+ symmetrical, motor strength normal upper and lower extremities, sensory exam intact. PSYCH: a lert, oriented. Assessment: * Assessment: 1. H istory of melanoma - Z85.820, There was no sign today of recurrence or new primary. 2 . O verweight (BMI 25.0-29.9) - E66.3, She remains slightly overweight. We have discussed diet and nutrition. We made a plan to lose weight at a rate of one half of a pound per week. 3 . P ostmenopausal - Z78.0, She remains stable without bleeding. She is going to have a hysterectomy for atypical cells. A bone density test will be ordered. 4 . A typical ductal hyperplasia of left breast - N60.92, A breast exam today was normal. 5 . R eactive depression - F32.9, Her depression is minimal today. She continues on her medication. She will notify me once if it recurs.?6. F ormer smoker - Z87.891, She is highly motivated not to smoke and we discussed a strategy for prevention of relapse in times of illness and distress. 7 . C ervical intraepithelial neoplasia - N87.9, Because of the persistent abnormality she has been scheduled for a hysterectomy next September. Plan: * Treatment: 2. O verweight (BMI 25.0-29.9) L AB: PROFILE, FASTING (COMPREHENSIVE METABOLIC) L AB: CBC w DIFF L AB: Lipid Panel 3. P ostmenopausal L AB: PROFILE, FASTING (COMPREHENSIVE METABOLIC) L AB: CBC w DIFF L AB: Lipid Panel 4. A typical ductal hyperplasia of left breast L AB: PROFILE, FASTING (COMPREHENSIVE METABOLIC) L AB: CBC w DIFF L AB: Lipid Panel 5. O thers Continue Gabapentin Capsule, 300 MG, 1 capsule, Orally, three times a day; C ontinue Ibuprofen Tablet, 600 MG, Oral; C ontinue Meclizine HCl Tablet, 25 MG, 1 tablet as needed, Orally, every 8 hrs as needed for vertigo; C ontinue Citalopram Hydrobromide Tablet, 10 MG, TAKE 1 TABLET BY MOUTH EVERY DAY; C ontinue dexAMETHasone Tablet, 2 MG, 1 tablet, Orally, every 12 hrs. * Procedure Codes: * Preventive Medicine: Counseling: C are goal follow-up plan: Counseling for abnormal BMI given Y es Above Normal BMI Follow-up D ietary management education, guidance, and counseling, Dietary needs education, Exercise promotion: strength training, Exercise promotion: stretching, Feeding regime, Giving encouragement to exercise, Lifestyle education regarding diet, Nutrition / feeding management, Nutrition therapy, Prescribed activity/exercise education, Prescribed diet education, Prescribed dietary intake, Special diet education, Weight monitoring , Intervention, Order not done: Medical or Other reason not done S moking/Tobacco Use Patient counseled on the dangers of tobacco use and urged to quit. 0 08/09/2024 * Follow Up: 2 month preop appt (Reason: Pre op review labs ) * Images: * Sign off status: Completed true * Provider: Adán Jordan MD Date: 0 08/09/2024 Generated for Erin marie/Irish/eTsukhsmitting on: 1 07:31 AM EST History and Physical Notes * HPI (History of Present Illness) Category Sub-Category Detail Notes COVID-19 Screening Questions Have you had any new onset fever, chills, cough, congestion, sore throat, shortness of breath, muscle aches?: No Have you been exposed to the virus withi n the last 10 days?: No Have you travelled internationally in e last 10 days?: No Have you been exposed to COVID-19 in the past?: Yes Examination Category Sub-Category Detail Notes General Examination GENERAL APPEARANCE: pleasant , well nourished, well developed, in no acute distress, calm and relaxed , overweight , woman HEAD: atraumatic, normocep halic EYES: eomi, perrla, anicte maria luisa, conjugate EARS: normal NOSE: septum intact NECK/THYROID: no jugular venous di stention, no carotid bruit, thyroid normal HEART: no clicks, gallops, murmurs, or rubs, regular rhythm, S1, S2 normal, no s3, or vascular bruits LUNGS: clear to auscultatio n ABDOMEN: bowel sounds normal, no ascites, no organomegaly, no mass NEUROLOGIC: alert and oriented, cranial nerves 2-12 grossly intact, deep tendon reflexes 2+ symmetrical, motor strength normal upper and lower extremities, sensory exam intact SKIN: no suspicious lesion s, anicteric, Healed scars, no pigmented lesions PERIPHERAL PULSES: normal BREASTS: no masses palpable b ilaterally , no dimpling , no discharge , no drainage , symmetrical , nontender MUSCULOSKELETAL: extremities unremark able, no clubbing, cyanosis or edema LYMPH NODES: no enlarged lymph no mau,spleen normal RECTAL EXAM: not examined PSYCH: alert, oriented ORAL CAVITY: normal, unremarkable
--- OUTSIDE RECORDS SUMMARY | 2024-10-04 06:00 | XMS_ITS ---
Author Organization Odilon Jordan III, MD Address [address] [place] [address] [place] [address] Care Team Providers Care Customer Sales Representative Name Role Phone Dr. Odilon Jordan III Primary Care Provider Allergies Allergen (clinical drug ingredient) Drug/Non Drug Allergy documented on EMR Reaction Allergy Type Onset Date Status morphine Morphine Sulfate hives Drug Allergy Active REASON FOR VISIT pre op Medications Medication SIG (Take, Route, Frequency, Duration) Notes Start Date End Date Status Meclizine HCl 25 MG 1 tablet as needed Orally every 8 hrs as needed for vertigo 06/29/2023 Active Ibuprofen 600 MG Oral Act robert Gabapentin 300 MG 1 capsule Orally thr ee times a day 03/23/2024 Active dexAMETHasone 2 MG 1 tablet Orally ever y 12 hrs 03/23/2024 Active Citalopram Hydrobromide 10 MG TAKE 1 TABLET BY MOUTH EVERY DAY Active Social History Tobacco Use: Social History Observation Description Date Details (start date - stop date) Former Smoker NA - NA Sex Assigned At : Social History Observation Description Sex Assigned At Female Tobacco Use/Smoking Question Answer Notes Patient is a former smoker How long has it been since you last smoked? > 10 years Additional Findings: Tobacco Non-User Ex-cigaret te smoker Encounters Encounter Location Date Provider Diagnosis Odilon Jordan III, MD [address] [place] [address] [address] [place] [id number] 10/04/2024 Odilon Jordan Plan Of Treatment Medication Medication Name Sig Start Date Stop Date Notes Meclizine HCl 25 MG 1 tablet as needed O rally every 8 hrs as needed for vertigo 06/29/2023 Ibuprofen 600 MG Oral Gabapentin 300 MG 1 capsule Orally thr ee times a day 03/23/2024 dexAMETHasone 2 MG 1 tablet Orally every 12 hrs 03/23/2024 Citalopram Hydrobromide 10 MG TAKE 1 TAB LET BY MOUTH EVERY DAY Next Appt Details Provider Name:Odilon Jordan , 12/01/2025 09:00:00 AM, [address] [facility] [address], [place], [address], Provider Name:Odilon Jordan , 06/05/2026 10:30:00 AM, [address] [place] [address] [address], [place], [address], Progress Notes * Gilma CAMPBELL LDOB: [birth year] (65 yo F)Acc No.[id number]:10/04/2024 Patient: Constanza SOW Gilma Laila Provider: Adán Jordan MD :1960 A ge:64 Y S ex:Female Date:10/04/2024 Address:[address] [place] [address], [id number] Subjective: * Chief Complaints: * 1 . Pre op. * HPI: C OVID-19 Screening: Questions H ave you had any new onset fever, chills, cough, congestion, sore throat, shortness of breath, muscle aches? N o H ave you been exposed to the virus within the last 10 days? N o H ave you travelled internationally in the last 10 days? N o H ave you been exposed to COVID-19 in the past? N o * ROS: G eneral/Constitutional: pain o nly [...] Depressed mood d enies. * Medical History: D epression, unspecified depression type, Nephrolithiasis, April 2017. High-grade intraepithelial squamous lesion on Pap smear, ADHD , Overweight, Former smoker which is still complaining, Menopause age 53, 1999 excision melanoma lower left thigh, Apocrine metaplasia and ductal epithelial hyperplasia, left breast. * Surgical History: b reast biopsy , , cone biopsy of cervix, high risk squamous intraepithelial lesion 7/, excision melanoma, left thigh 1999, colonoscopy at [facility] 07/2022, Colposcopy, Dr. Davis, persistent high-grade dysplasia June 2024. * Hospitalization/Major Diagno stic Procedure: D enies Past Hospitalization. * Family History: F ather: 83 yrs, [...] not smoke cigarettes. She was born in [place]. She has not a Jainism. She identifies as LGBT. * Medications: T aking Gabapentin 300 MG Capsule 1 capsule Orally three times a day , Taking Ibuprofen 600 MG Tablet Oral , Taking Meclizine HCl 25 MG Tablet 1 tablet as needed Orally every 8 hrs as needed for vertigo , Taking Citalopram Hydrobromide 10 MG Tablet TAKE 1 TABLET BY MOUTH EVERY DAY , Taking dexAMETHasone 2 MG Tablet 1 tablet Orally every 12 hrs , Medication List reviewed and reconciled with the patient * Allergies: M orphine Sulfate: hives. Objective: * Vitals: * Examination: G eneral Examination: GENERAL APPEARANCE: p leasant, well nourished, well developed, in no acute distress, calm and relaxed. HEAD: a traumatic, normocephalic. EYES: e latoya, perrla, anicteric, conjugate. EARS: n ormal. NOSE: s eptum intact. ORAL CAVITY: n ormal, unremarkable. NECK/THYROID: n o jugular venous distention, no carotid bruit, thyroid normal. LYMPH NODES: n o enlarged lymph nodes,spleen normal. SKIN: n o suspicious lesions, anicteric. HEART: n o clicks, gallops, murmurs, or rubs, regular rhythm, S1, S2 normal, no s3, or vascular bruits. LUNGS: c lear to auscultation . BREASTS: no masses palpable bilaterally. ABDOMEN: b owel sounds normal, no ascites, no organomegaly, no mass. RECTAL EXAM: n ot examined. MUSCULOSKELETAL: e xtremities unremarkable, no clubbing, cyanosis or edema. PERIPHERAL PULSES: n ormal. NEUROLOGIC: a lert and oriented, cranial nerves 2-12 grossly intact, deep tendon reflexes 2+ symmetrical, motor strength normal upper and lower extremities, sensory exam intact. PSYCH: a lert, oriented. Assessment: Plan: * Treatment: * Images: * The named appointment provid er may or may not be the originator of this progress note, and it is not deemed complete until electronically signed by the appointment provider. Sign off status: Pending * Provider: Adán Jordan MD Date: 12/04/2023 Generated for Erin marie/Irish/Brittany on: 07:32 AM EST History and Physical Notes * HPI (History of Present Illness) Category Sub-Category Detail Notes COVID-19 Screening Questions Have you had any new onset fever, chills, cough, congestion, sore throat, shortness of breath, muscle aches?: No Have you been exposed to the virus with n the last 10 days?: No Have you travelled internationally in [facility] last 10 days?: No Have you been exposed to COVID-19 in the past?: No Examination Category Sub-Category Detail Notes General Examination GENERAL APPEARANCE: pleasant , well nourished, well developed, in no acute distress, calm and relaxed HEAD: atraumatic, normocep halic EYES: eomi, perrla, [...] exam intact SKIN: no suspicious lesion s, anicteric PERIPHERAL PULSES: normal BREASTS: no masses palpable b ilaterally MUSCULOSKELETAL: extremities unremark able, no clubbing, cyanosis or edema LYMPH NODES: no enlarged lymph no mau,spleen normal RECTAL EXAM: not examined PSYCH: alert, oriented ORAL CAVITY: normal, unremarkable
--- OUTSIDE RECORDS SUMMARY | 2025-05-02 06:00 | XMS_ITS ---
Author Organization Odilon Jordan III, MD Address [address] [place] [address] [place] [address] Care Team Providers Care Lime Puller Name Role Phone Dr. Odilon Jordan III Primary Care Provider [phone] Allergies Allergen (clinical drug ingredient) Drug/Non Drug Allergy documented on EMR Reaction Allergy Type Onset Date Status morphine Morphine Sulfate hives Drug Allergy Active REASON FOR VISIT Annual Exam Medications Medication SIG (Take, Route, Frequency, Duration) Notes Start Date End Date Status Meclizine HCl 25 MG 1 tablet as needed Orally every 8 hrs as needed for vertigo 06/29/2023 Active Citalopram Hydrobromide 10 MG TAKE 1 TABLET BY MOUTH EVERY DAY Active Gabapentin 300 MG 1 capsule Orally thr ee times a day 03/23/2024 Active Ibuprofen 600 MG Oral Act robert dexAMETHasone 2 MG 1 tablet Orally ever [...] Provider Diagnosis Odilon Jordan III, MD [address] [place] [address] [address] [place] [address] 05/02/2025 Odilon Jordan Plan Of Treatment Medication Medication Name Sig Start Date Stop Date Notes Meclizine HCl 25 MG 1 tablet as needed O rally every 8 hrs as needed for vertigo 06/29/2023 Citalopram Hydrobromide 10 MG TAKE 1 TAB LET BY MOUTH EVERY DAY Gabapentin 300 MG 1 capsule Orally thr ee times a day 03/23/2024 Ibuprofen 600 MG Oral dexAMETHasone 2 MG 1 tablet Orally every 12 hrs 03/23/2024 Next Appt Details Provider Name:Odilon Jordan , 12/01/2025 09:00:00 AM, [address] [facility] [address], [place], [address], Provider Name:Odilon Jordan , 06/05/2026 10:30:00 AM, [address] [place] [address] [address], [place], [address], Progress Notes * CAMPBELLGilma LDOB: [birth year] (65 yo F)Acc No.[id number]:05/02/2025 Progress Notes Patient: Gilma HUNT Provider: Adán Jordan MD :1960 A ge:64 Y S ex:Female Date:05/02/2025 Address:[address] [place] [address], [place], [id number] Subjective: * Chief Complaints: * 1 . Annual Exam. * HPI: C OVID-19 Screening: Questions H ave you had any new onset fever, chills, cough, congestion, sore throat, shortness of breath, muscle aches? N o * ROS: G eneral/Constitutional: pain [...] of cervix, high risk squamous intraepithelial lesion 617/20, excision melanoma, left thigh 1999, colonoscopy at [facility] 07/2022, Colposcopy, Dr. Davis, persistent high-grade dysplasia [...] not smoke cigarettes. She was born in [place]. She has not a Hinduism. She identifies as LGBT. * Medications: T [...] Pending * Provider: Adán Jordan MD Date: 0 05/02/2025 Generated for Erin marie/Irish/Carolynitting on: 07:31 AM EST History and Physical Notes * HPI (History of Present Illness) Category Sub-Category Detail Notes COVID-19 Screening Questions Have you had any new onset fever, chills, cough, congestion, sore throat, shortness of breath, muscle aches?: No Examination Category Sub-Category Detail Notes General [...]
--- OUTSIDE RECORDS SUMMARY | 2025-05-31 05:30 | XMS_ITS ---
Author Organization Odilon Jordan III, MD Address [address] [facility] [place] [address] Care Team Providers Care [place] Leverman Name Role Phone Dr. Odilon Jordan III Primary Care Provider Allergies Allergen (clinical drug ingredient) Drug/Non Drug Allergy documented on EMR Reaction Allergy Type Onset Date Status No Known Food Allergy Unknown Drug Allergy Active morphine Morphine Sulfate hives Drug Allergy Active REASON FOR VISIT Annual Exam Social History Tobacco Use: Social History Observation Description Date Details (start date - stop date) Former Smoker NA - NA Sex Assigned At : Social History Observation Description Sex Assigned At Female Tobacco Control (Standard) Question Answer Notes Tobacco use: Former smoker How long has it been since you last smoked? Grea ter than 10 years Additional Findings: Tobacco non-user Ex-cigaret te smoker AUDIT-C (Standard) Question Answer Notes Did you have a drink contain ing alcohol in the past year? Yes How often did you have six o r more drinks on one occasion in the past year? 2 to 4 times a month (2 points) How many drinks did you have on a typical day when you were drinking in the past year? 1 or 2 drinks (0 point) How often did you have a dri nk containing alcohol in the past year? Never (0 point) Points 2 Interpretation Negative Vital Signs Temperature 97.9 degrees Fahrenheit 05/31/20 25 Blood pressure systolic 115 mm Hg 05/31/20 25 Blood pressure diastolic 66 mm Hg 025 Heart Rate 48 /min 05/31/2025 Respiratory Rate 14 /min 05/31/2025 Height 68 in 05/31/2025 Weight 172 lbs 05/31/2025 BMI 26.15 kg/m2 05/31/2025 Encounters Encounter Location Date Provider Diagnosis Odilon Jordan III, MD [address] [place] [address], [place] [address] 05/31/2025 Odilon Jordan Encounter for screen ing mammogram for malignant neoplasm of breast Z12.31 ; History of melanoma Z85.820 ; Overweight (BMI 25.0-29.9) E66.3 ; Postmenopausal Z78.0 ; Former smoker Z87.891 ; Reactive depression F32.9 ; Nephrolithiasis N20.0 ; Attention deficit hyperactivity disorder (ADHD), predominantly inattentive type F90.0 ; 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 05/31/2025 History of melanoma (ICD-10 - Z85.820) There was no sign today of recurrence or new primary. 05/31/2025 Overweight (BMI 25.0-29.9) (ICD-10 - E66.3) Her body mass index is 26. We discussed diet and nutrition. We made a plan to lose weight at a rate of 1 pound per week. I recommended frequent physical activity. 05/31/2025 Postmenopausal (ICD- 10 - Z78.0) I recommended NITROGLYCERIN DISTRIBUTOR in bone density test and annual mammograms. 05/31/2025 Former smoker (ICD-1 0 - Z87.891) She is highly motivated not to smoke and we discussed a strategy for prevention of relapse in times of illness and distress. 05/31/2025 Reactive depression (ICD-10 - F32.9) Her depression is minimal today. She continues on her medication. She will notify me once if it recurs. 05/31/2025 Nephrolithiasis (ICD-10 - N20.0) She is not experiencing renal colic at this time and has had no recent hematuria. 05/31/2025 Attention deficit hyperactivity disorder (ADHD), predominantly inattentive type (ICD-10 - F90.0) She says that she is conducting all of the activities of daily life without impairment at this time. She feels healthy and well and no change in her treatment is needed or desired. 05/31/2025 Atypical ductal hyperplasia of left breast (ICD-10 - N60.92) A breast exam today was normal. 05/31/2025 Acute left-sided low back pain with left-sided sciatica (ICD-10 - M54.42) She is beginning to recover and improved. Current ttherapy was continued. Follow-up will be in one week. 05/31/2025 Neck pain (ICD-10 - M54.2) This has resolved. Plan Of Treatment Pending Test Test Name Order Date PROFILE, FASTING (COMPREHENSIVE METABOLI C) 05/31/2025 CBC w DIFF 05/31/2025 Lipid Panel 05/31/2025 MM tomosynthesis screening BI 05/31/2025 Next Appt Details Follow Up: 6 Months, Reason: OV Provider Name:Odilon Jordan , 12/01/2025 09:00:00 AM, [address] [place] [address] [address], [place], [address], Provider Name:Odilon Jordan , 06/05/2026 10:30:00 AM, [address] [place] [address] [address], [place], [address], Progress Notes * Gilma CAMPBELL LDOB: [birth year] (64 yo F)Acc No.[id number]:05/31/2025 Progress Notes Patient: Gilma HUNT Provider: Adán Jordan MD :1960 A ge:64 Y S ex:Female Date:05/31/2025 Address:[address] [place] [address], [facility] [phone] Subjective: * Chief Complaints: * A nnual Exam * HPI: D epression Screening: S he returns to the office at the age of 64 for an annual physical examination. She has been going to a chiropractor every 2 weeks for an exacerbation of lumbar back pain. She finds this very helpful. She has been told the problem is at L3-L4. She was told by the [facility] that she cannot donate blood but does not know the reason why. I have discussed her health her how she can find out. She is overdue to see her sales appointment coordinator. He does not feel she needs to see Dr. Davis because she has no parts. She has a moderate to mild amount of insomnia. She reports that she has a significant other age 62. She is happy with her new relationship. She is due for a mammogram which we'll schedule. I encouraged her to reestablish a relationship with gynecology. He presented discussed with her the need for a bone density. PHQ-9 L ittle interest or pleasure in doing things?Not at all F eeling down, depressed, or hopeless S everal days T rouble falling or staying asleep, or sleeping too much N early every day F eeling tired or having little energy N ot at all P oor appetite or overeating N ot at all F eeling bad about yourself or that you are a failure, or have let yourself or your family down S everal days T rouble concentrating on things, such as reading the newspaper or watching television N ot at all M oving or speaking so slowly that other people could have noticed; or the opposite, being so fidgety or restless that you have been moving around a lot more than usual N ot at all T houghts that you would be better off or of hurting yourself in some way N ot at all T otal Score 5 I nterpretation M ild Depression C OVID-19 Screening: Questions H ave you had any new onset fever, chills, cough, congestion, sore throat, shortness of breath, muscle aches? N o S LAN Questions: SDOH Questions I n the past year have you been worried about losing your housing? N o I n the past year have you or any family members you live with been unable to get any of the following when it was really needed? Check all that apply: N one F all Risk Screening: Fall History H ave you had any falls with injury in the past year? N o H ave you had two or more falls in the past year? N o F all Risk Assessment: N o falls in the past year * ROS: G eneral/Constitutional: pain o nly [...] enies. D iarrhea d enies. H eartburn o ccasional. N ausea d enies. R ectal bleeding [...] enies.?Headache d enies. L ow back pain t hat is chronic. P sychiatric: Depressed mood d enies. * Medical History: * Surgical History: b reast biopsy cone biopsy of cervix, high risk squamous intraepithelial lesion 617/20excision melanoma, left thigh [place] [facility] [place], Dr. Davis, persistent high-grade dysplasia June4Complete Hysterectomy 09/2024 * Hospitalization/Major Diagno stic Procedure: D enies Past Hospitalization * Family History: F ather: 83 yrs, parkinsons,. M other: 74 yrs, glioblastoma multiform, diagnosed with Cancer. 2 brother(s) , 1 sister(s) - healthy. 1 daughter(s) - healthy. . She denies any history of hereditary malignancy. There is no family history of breast cancer ovarian cancer. She has 1 daughter who is healthy and well. She is not aware of any family history of mental illness or substance abuse or addiction. * Social History: T obacco Use: T obacco Control (Standard) T obacco use: F ormer smoker H ow long has it been since you last smoked??Greater than 10 years A dditional Findings: Tobacco non-user E x-cigarette smoker D rugs/Alcohol: D rugs H ave you used drugs other than those for medical reasons in the past 12 months? N o D rug/Alcohol: A EMILY-C (Standard) D id you have a drink containing alcohol in the past year? Y es H ow often did you have six or more drinks on one occasion in the past year? 2 to 4 times a month (2 points) H ow many drinks did you have on a typical day when you were drinking in the past year? 1 or 2 drinks (0 point) H ow often did you have a drink containing alcohol in the past year? N ever (0 point) P oints 2 I nterpretation N egative S he she is but is being . She has a 12-year-old daughter. She does not smoke cigarettes. She was born in [place]. She has not a Taoist. She identifies as LGBT. * Medications: D iscontinuedGabapentin 300 MG Capsule 1 capsule Orally three times a day Ibuprofen 600 MG Tablet Oral Meclizine HCl 25 MG Tablet 1 tablet as needed Orally every 8 hrs as needed for vertigo Citalopram Hydrobromide 10 MG Tablet TAKE 1 TABLET BY MOUTH EVERY DAY dexAMETHasone 2 MG Tablet 1 tablet Orally every 12 hrs Medication List reviewed and reconciled with the patientDiscontinued Gabapentin 300 MG Capsule 1 capsule Orally three times a day Discontinued Ibuprofen 600 MG Tablet Oral Discontinued Meclizine HCl 25 MG Tablet 1 tablet as needed Orally every 8 hrs as needed for vertigo Discontinued Citalopram Hydrobromide 10 MG Tablet TAKE 1 TABLET BY MOUTH EVERY DAY Discontinued dexAMETHasone 2 MG Tablet 1 tablet Orally every 12 hrs Medication List reviewed and reconciled with the patient * Allergies: M orphine Sulfate: hivesNo Known Food Allergyno[Allergies Verified] Objective: * Vitals: H t: 68, Wt: 172, BMI:26.15, BP: 115/66, HR: 48, RR: 14, Temp: 97.9, Ht-cm: 172.72, Wt-k.02. * Examination: G eneral Examination: GENERAL APPEARANCE: p leasant, well nourished, well developed, in no acute distress, calm and relaxed, overweight, woman. HEAD: a traumatic, normocephalic. EYES: e [...] LUNGS: c lear to auscultation . BREASTS: S he declined a breast examination today.. ABDOMEN: b owel sounds normal, no ascites, no organomegaly, no mass, overweight. RECTAL EXAM: n ot examined. MUSCULOSKELETAL: e xtremities unremarkable, no clubbing, cyanosis or edema. PERIPHERAL PULSES: n ormal. NEUROLOGIC: a lert and oriented, cranial nerves 2-12 grossly intact, deep tendon reflexes 2+ symmetrical, motor strength normal upper and lower extremities, sensory exam intact. PSYCH: a lert, oriented, anxious appearing, mood depressed.? Assessment: * Assessment: 1. H istory of melanoma - Z85.820 (Primary) N otes :There was no sign today of recurrence or new primary. 2 . E ncounter for screening mammogram for malignant neoplasm of breast - Z12.31 N otes :And annual screening mammogram has been scheduled. 3 . O verweight (BMI 25.0-29.9) - E66.3 N otes :Her body mass index is 26. We discussed diet and nutrition. We made a plan to lose weight at a rate of 1 pound per week. I recommended frequent physical activity. 4 . P ostmenopausal - Z78.0 N otes :I recommended NITROGLYCERIN DISTRIBUTOR in bone density test and annual mammograms. 5 . F ormer smoker - Z87.891 N otes :She is highly motivated not to smoke and we discussed a strategy for prevention of relapse in times of illness and distress. 6 . R eactive depression - F32.9 N otes :Her depression is minimal today. She continues on her medication. She will notify me once if it recurs. 7 . N ephrolithiasis - N20.0 N otes :She is not experiencing renal colic at this time and has had no recent hematuria. 8 . A ttention deficit hyperactivity disorder (ADHD), predominantly inattentive type - F90.0 N otes :She says that she is conducting all of the activities of daily life without impairment at this time. She feels healthy and well and no change in her treatment is needed or desired. 9 . A typical ductal hyperplasia of left breast - N60.92 N otes :A breast exam today was normal. 1 0. A cute left-sided low back pain with left-sided sciatica - M54.42 ? N otes :She is beginning to recover and improved. Current ttherapy was continued. Follow-up will be in one week. 1 1. N malvin pain - M54.2 N otes :This has resolved. Plan: * Treatment: 2. O verweight (BMI 25.0-29.9) L AB: PROFILE, FASTING (COMPREHENSIVE METABOLIC) L AB: CBC w DIFF L AB: Lipid Panel 3. P ostmenopausal L AB: PROFILE, FASTING (COMPREHENSIVE METABOLIC) L AB: CBC w DIFF L AB: Lipid Panel * Procedure Codes: * Preventive Medicine: Counseling: [...] tobacco use and urged to quit. 0 05/31/2025 * Follow Up: 6 Months (Reason: OV) * Images: * Sign off status: Completed true * Provider: Adán Jordan MD Date: 0 05/31/2025 Generated for Erin marie/Irish/eTsukhsmitting on: 1 07:32 AM EST History and Physical Notes * HPI (History of Present Illness) Category Sub-Category Detail Notes Depression Screening PHQ-9 Little inte rest or pleasure in doing things: Not at all Feeling down, depressed, or hopeless: Se veral days Trouble falling or staying asleep, or sl eeping too much: Nearly every day Feeling tired or having little energy: N ot at all Poor appetite or overeating: Not at all Feeling bad about yourself o r that you are a failure, or have let yourself or your family down: Several days Trouble concentrating on thi ngs, such as reading the newspaper or watching television: Not at all Moving or speaking so slowly that other people could have noticed; or the opposite, being so fidgety or restless that you have been moving around a lot more than usual: Not at all Thoughts that you would be b [place] off or of hurting yourself in some way: Not at all Total Score: 5 Interpretation: Mild Depression Fall Risk Screening Fall History Have you had any falls with injury in the past year?: No Have you had two or more falls in the year?: No Fall Risk Assessment:: No falls in the year COVID-19 Screening Questions Have you had any new onset fever, chills, cough, congestion, sore throat, shortness of breath, muscle aches?: No SDOH Questions SDOH Questions In the past year have you been worried about losing your housing?: No In the past year have you or any family members you live with been unable to get any of the following when it was really needed? Check all that apply:: None Examination Category Sub-Category Detail Notes General Examination GENERAL APPEARANCE: pleasant , well nourished, well developed, in no acute distress, calm and relaxed, overweight, woman HEAD: atraumatic, normocep halic EYES: eomi, perrla, anicte maria luisa, conjugate EARS: normal NOSE: septum intact NECK/THYROID: no jugular venous di stention, no carotid bruit, thyroid normal HEART: no clicks, gallops, murmurs, or rubs, regular rhythm, S1, S2 normal, no s3, or vascular bruits LUNGS: clear to auscultatio n ABDOMEN: bowel sounds normal, no ascites, no organomegaly, no mass, overweight NEUROLOGIC: alert and oriented, cranial nerves 2-12 grossly intact, deep tendon reflexes 2+ symmetrical, motor strength normal upper and lower extremities, sensory exam intact SKIN: no suspicious lesion s, anicteric PERIPHERAL PULSES: normal BREASTS: She declined a breas t examination today. MUSCULOSKELETAL: extremities unremark able, no clubbing, cyanosis or edema LYMPH NODES: no enlarged lymph no mau,spleen normal RECTAL EXAM: not examined PSYCH: alert, oriented, anx ious appearing, mood depressed ORAL CAVITY: normal, unremarkable
--- OUTSIDE RECORDS SUMMARY | 2025-07-27 10:08 | XMS_ITS ---
Author Organization Odilon Jordan III, MD Address [address] [place] [address] [address] [place] [address] Care Team Providers Care Data Abstractor Name Role Phone Dr. Odilon Jordan III Primary Care Provider REASON FOR VISIT Needs referral Social History Sex Assigned At : Social History Observation Description Sex Assigned At Female Encounters Encounter Location Date Provider Diagnosis Odilon Jordan III, MD [address] [place] [address] [place] [address] 07/27/2025 Odilon Jordan Plan Of Treatment Next Appt Details Provider Name:Odilon Jordan , 12/01/2025 09:00:00 AM, [address] [place] [address] [place], [address], Provider Name:Odilon Jordan , 06/05/2026 10:30:00 AM, [address] [place] [address] [place], [address], Progress Notes * Gilma CAMPBELL LDOB: [birth year] (64 yo F)Acc No.[id number]:07/27/2025 Patient: Constanza EMREDIANNGilma :1960 A ge:64 Y S ex:Female Address:[address] [place], [address] Subjective: * Chief Complaints: * N eeds referral * Medical History: * Surgical History: * Hospitalization/Major Diagno stic Procedure: * Medications: Objective: * Vitals: * Physical Examination: Assessment: Plan: * Treatment: * Procedure Codes: * true * Date: Generated for Erin marie/Irish/Brittany on: 07:31 AM EST
--- OUTSIDE RECORDS SUMMARY | 2025-09-19 09:00 | XMS_ITS ---
Author Organization Odilon Jordan III, MD Address [address] [facility] [place] [address] Care Team Providers Care Slitter Scorer Name Role Phone Dr. Odilon Jordan III Primary Care Provider Allergies Allergen (clinical drug ingredient) Drug/Non Drug Allergy documented on EMR Reaction Allergy Type Onset Date Status No Known Food Allergy Unknown Drug Allergy Active morphine Morphine Sulfate hives Drug Allergy Active REASON FOR VISIT Lower Back pain for 3 days, History of melanoma, Depression, Attention deficit syndrome Medications Medication SIG (Take, Route, Fr equency, Duration) Notes Start Date End Date Status Lidocaine 4 % 1 patch as needed Ex ternally tweice a day for 7 days 09/19/2025 Active dexAMETHasone 2 MG 1 tablet Orally twic e a day for 7 days 09/19/2025 Active Gabapentin 300 MG 1 capsule Orally thr ee times a day for 7 days 09/19/2025 Active Social History Tobacco Use: Social History [...] Additional Findings: Tobacco non-user Ex-cigaret te smoker Vital Signs Temperature 98.1 degrees Fahrenheit 09/19/20 25 Blood pressure systolic 110 mm Hg 09/19/20 25 Blood pressure diastolic 71 mm Hg 025 Heart Rate 78 /min 09/19/2025 Height 68 in 09/19/2025 Weight 165 lbs 09/19/2025 BMI 25.09 kg/m2 09/19/2025 Encounters Encounter Location Date Provider Diagnosis Odilon Jordan III, MD [address] [place] [address] [address], [place] [address] 09/19/2025 Odilon Jordan Former smoker Z87.89 1 ; Overweight (BMI 25.0-29.9) E66.3 ; History of melanoma Z85.820 ; Reactive depression F32.9 ; Nephrolithiasis N20.0 ; Attention deficit hyperactivity disorder (ADHD), predominantly inattentive type F90.0 ; 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 09/19/2025 Overweight (BMI 25.0-29.9) (ICD-10 - E66.3) Her body mass index is 25.09. We discussed diet and nutrition. We made a plan to lose weight at a rate of 1 pound per week. I recommended frequent physical activity. 09/19/2025 History of melanoma (ICD-10 - Z85.820) There was no sign today of recurrence or new primary. 09/19/2025 Reactive depression (ICD-10 - F32.9) Her depression is minimal today. She continues on her medication. She will notify me once if it recurs. 09/19/2025 Nephrolithiasis (ICD-10 - N20.0) She is not experiencing renal colic at this time and has had no recent hematuria. 09/19/2025 Attention deficit hyperactivity disorder (ADHD), predominantly inattentive type (ICD-10 - F90.0) She says that she is conducting all of the activities of daily life without impairment at this time. She feels healthy and well and no change in her treatment is needed or desired. 09/19/2025 Atypical ductal hyperplasia of left breast (ICD-10 - N60.92) A breast exam today was normal. 09/19/2025 Acute left-sided low back pain with left-sided sciatica (ICD-10 - M54.42) This has occurred before. She is going to use heat and rest and ibuprofen, gabapentin and dexamethasone. A followup visit was arranged. Plan Of Treatment Medication Medication Name Sig Start Date Stop Date Notes Lidocaine 4 % 1 patch as needed Ex ternally tweice a day for 7 days 09/19/2025 dexAMETHasone 2 MG 1 tablet Orally twice a day for 7 days 09/19/2025 Gabapentin 300 MG 1 capsule Orally thr ee times a day for 7 days 09/19/2025 Next Appt Details Follow Up: as scheduled, Maren son: ov Provider Name:Odilon Jordan , 12/01/2025 09:00:00 AM, [address] [place] [address] [address], [place], [address], Provider Name:Odilon Jordan , 06/05/2026 10:30:00 AM, [address] [place] [address] [address], [place], [address], Progress Notes * Gilma CAMPBELL LDOB: [birth year] (65 yo F)Acc No.[id number]:09/19/2025 Progress Notes Patient: Gilma HUNT Provider: Adán Jordan MD :1960 A ge:65 Y S ex:Female Date:09/19/2025 Address:[address] [place], [place] [id number] Subjective: * Chief Complaints: * L ower Back pain for 3 daysHistory of melanomaDepressionAttention deficit syndrome * HPI: C OVID-19 Screening: S he returns with a chief complaint of the neew onset of low back pain. The pain is localized along the lumbar spine radiates into the left buttock. She has had this in the past. It is moderately severe. She is going to be treated with feet and rest and ibuprofen as well as dexamethasone for 7 days and gabapentin for 7 days. A followup visit has been arranged. Questions H ave you had any new onset fever, chills, cough, congestion, sore throat, shortness of breath, muscle aches? N o * ROS: G eneral/Constitutional: pain A cute lumbar spine pain. C hills d enies.?Fatigue a dmits. F [...] L ow back pain t hat is new. P sychiatric: Depressed mood d enies. * Medical History: * Surgical History: b reast biopsy cone biopsy of cervix, high risk squamous intraepithelial lesion 617/20excision melanoma, left thigh 2000colonoscopy at [facility] 2Colposcopy, Dr. Davis, persistent high-grade dysplasia June4Complete [...] dditional Findings: Tobacco non-user E x-cigarette smoker S he she is but is being . She has a 12-year-old daughter. She does not smoke cigarettes. She was born in [place]. She has not a Shinto. She identifies as LGBT. * Medications: N one * Allergies: M orphine Sulfate: hivesNo Known Food Allergyno[Allergies Verified] Objective: * Vitals: H t: 68, Wt:165, BMI:25.09, BP:110/71, HR:78, Temp:98.1, Ht-cm: 172.72, Wt-k.84. * Examination: G eneral Examination: GENERAL APPEARANCE: p leasant, well nourished, well developed, in no acute distress, calm and relaxed: overweight: woman. HEAD: a traumatic, normocephalic. EYES: e [...] LUNGS: c lear to auscultation . BREASTS: N ot examined. ABDOMEN: b owel sounds normal, no ascites, no organomegaly, no mass: overweight. RECTAL EXAM: n ot examined. MUSCULOSKELETAL: e xtremities unremarkable, no clubbing, cyanosis or edema, Decreased range of motion of lumbar spine with pain, muscle spasm left side present reflexes intact. PERIPHERAL PULSES: n ormal. NEUROLOGIC: a lert and oriented, cranial nerves 2-12 grossly intact, deep tendon reflexes 2+ symmetrical, motor strength normal upper and lower extremities, sensory exam intact. PSYCH: a lert, oriented. Assessment: * Assessment: 1. F ormer smoker - Z87.891 (Primary) N otes :She is highly motivated not to smoke and we discussed a strategy for prevention of relapse in times of illness and distress. 2 . O verweight (BMI 25.0-29.9) - E66.3 N otes :Her body mass index is 25.09. We discussed diet and nutrition. We made a plan to lose weight at a rate of 1 pound per week. I recommended frequent physical activity. 3 . H istory of melanoma - Z85.820 N otes :There was no sign today of recurrence or new primary. 4 . R eactive depression - F32.9 N otes :Her depression is minimal today. She continues on her medication. She will notify me once if it recurs. 5 . N ephrolithiasis - N20.0 N otes :She is not experiencing renal colic at this time and has had no recent hematuria. 6 . A ttention deficit hyperactivity disorder (ADHD), predominantly inattentive type - F90.0 N otes :She says that she is conducting all of the activities of daily life without impairment at this time. She feels healthy and well and no change in her treatment is needed or desired. 7 . A typical ductal hyperplasia of left breast - N60.92 N otes :A breast exam today was normal. 8 . A cute left-sided low back pain with left-sided sciatica - M54.42 ? N otes :This has occurred before. She is going to use heat and rest and ibuprofen, gabapentin and dexamethasone. A followup visit was arranged. Plan: * Treatment: * Procedure Codes: * Preventive Medicine: Counseling: C are goal follow-up plan: Counseling for abnormal BMI given Y es Above Normal BMI Follow-up D ietary management education, guidance, and counseling S moking/Tobacco Use Patient counseled on the dangers of tobacco use and urged to quit. 1 * Follow Up: a s scheduled (Reason: ov) * Images: * Sign off status: Completed true * Provider: Adán Jordan MD Date: Generated for Erin marie/Irish/Carolynitting on: 07:31 AM [...] developed, in no acute distress, calm and relaxed: overweight: woman HEAD: atraumatic, normocep halic EYES: eomi, perrla, anicte maria luisa, conjugate EARS: normal NOSE: septum intact NECK/THYROID: no jugular venous di stention, no carotid bruit, thyroid normal HEART: no clicks, gallops, murmurs, or rubs, regular rhythm, S1, S2 normal, no s3, or vascular bruits LUNGS: clear to auscultatio n ABDOMEN: bowel sounds normal, no ascites, no organomegaly, no mass: overweight NEUROLOGIC: alert and oriented, cranial nerves 2-12 grossly intact, deep tendon reflexes 2+ symmetrical, motor strength normal upper and lower extremities, sensory exam intact SKIN: no suspicious lesion s, anicteric PERIPHERAL PULSES: normal BREASTS: Not examined MUSCULOSKELETAL: extremities unremark able, no clubbing, cyanosis or edema, Decreased range of motion of lumbar spine with pain, muscle spasm left side present reflexes intact LYMPH NODES: no enlarged lymph no mau,spleen normal RECTAL EXAM: not examined PSYCH: alert, oriented ORAL CAVITY: normal, unremarkable
--- OUTSIDE RECORDS SUMMARY | 2025-11-14 09:33 | XMS_ITS ---
Author Organization Odilon Jordan III, MD Address [address] [place] [address] Care Team Providers Care Aids Social Worker Name Role Phone Dr. Odilon Jordan III Primary Care Provider Reason For Referral Reason patient overdue for repeat 1 year colonoscopy abnormal prior colonoscopy in 2021 Diagnosis 1 Abnormal colonoscopy (R93.3) Referral Organization Odilon Jordan III, MD Referring Provider First Name Odilon Referring Provider Last Name Nikki Referring Provider Speciality Internal M edicine Referred Provider ELNE DENT Referred Provider Specialty Gastroentero logy General Notes SLeatha HEADER SETUP OPERATOR 11/14 02:43:44 PM > ref/progress note and last pathology from colonoscopy faxed . pt called and made aware of this. Referral Priority Routine REASON FOR VISIT Message Social History Sex Assigned At : Social History Observation Description Sex Assigned At Female Encounters Encounter Location Date Provider Diagnosis Odilon Jordan III, MD [address] [place] [address] [address] [facility] [place] [address] 11/14/2025 Odilon Jordan Plan Of Treatment Referrals Referral Date Details 11/14/2025 11/14/2025, patient overdue for repeat 1 year colonoscopy abnormal prior colonoscopy in 2021, ELEN DENT Next Appt Details Provider Name:Odilon Jordan , 12/01/2025 09:00:00 AM, [address] [place] [address] [place], [address], Provider Name:Odilon Jordan , 06/05/2026 10:30:00 AM, [address] [place] [address] [place], [address], Progress Notes * Gilma CAMPBELL LDOB: [birth year] (65 yo F)Acc No.[id number]:11/14/2025 Patient: Gilma HUNT :1960 A ge:65 Y S ex:Female Address:[address] [place] [address], [phone] Subjective: * Chief Complaints: * M essage * Medical History: * Surgical History: * Hospitalization/Major Diagno stic Procedure: * Medications: Objective: * Vitals: * Physical Examination: Assessment: Plan: * Treatment: * Procedure Codes: * true * Date: Generated for Erin marie/Irish/eTransmitting on: 07:31 AM EST Consultation Request Notes Referral Date Referring Provider Referred Provider Not marvel 11/14/2025 Odilon Jordan RUBEELA patient over due for repeat 1 year colonoscopy abnormal prior colonoscopy in 2021
--- OUTSIDE RECORDS SUMMARY | 2025-11-29 07:31 | XMS_ITS ---
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 She was seen on November 16, 2025, at which time Excision (Repair: Complex) was performed. The pathology shows: Scar on the right lateral buccal cheek. We recommended the following: Reassure : margins clear.The patient presents for suture removal.Today the patient reports: Quality: no pain, no redness, no swelling, and no drainage. Allergies, Adverse Reactions, Alerts Substance RxNorm Reaction(s) Severity Status Start Da te morphine unspecified active Medications No data Problems Problem Code Type Status Date of Diagnosis Da te of Resolution Melanocytic nevus of skin of face (disorder) 7274585631(SN OMED) Diagnosis active 11/16/2025 History of clinical finding in subject (situation) 600054709(SNO MED) Problem active Malignant melanoma (disorder) 312383238(SNO MED) Problem active History of skin disorder (situation) 440766974(SNO MED) Problem active Surgical follow-up (finding) 284281018(SNO MED) Diagnosis active 11/24/2025 Results No data Encounters Service provided at [facility], [address] [place] [address], [address], [place], [place] [id number]. Office phonenumber is [phone]. Office fax number is [phone]. Encounter Diagnosis Location Date / Time Type Disc harge Status Post-Operative Wound Check (Z48.817) [facility] 11/24/2025 18:30:00 [place] [address] Reason For Referral No data Procedures Procedure Date Documentation of current medications (pr ocedure) 11/25/2025 12:00 am UTC Removal of suture (procedure) 11/24/2025 12:00 am UTC Documentation of current medications (pr ocedure) 11/20/2025 12:00 am UTC Excision (procedure) 11/16/2025 12:00 am UTC Documentation of past medical history (p rocedure) Documentation of past medical history (p rocedure) Documentation of past medica l history (procedure) Hysterectomy 2023 Review Of Systems No Data Assessment 1.Post-Operative Wound CheckSuture Removal (Global Period) Plan of Care No data Instructions No Data Social History Code Activity Start Date End Date 3837358 (SNOMED) Former smoker Sex Female Sexual orientation Don't Know Gender identity Unspecified Vital Signs No data Insurances Coverage Status Coverage Type Relationship to Subscriber Member Identifier Subscriber Identifier Group Identifier Payer Identifier Active Self [id number]
--- OUTSIDE RECORDS SUMMARY | 2025-11-29 07:31 | XMS_ITS | Patient Health Record ---
Author Organization Odilon Jordan III, MD Address [address] [place] [address] [place] [address] Care Team Providers Care Functional Director Name Role Phone Dr. Odilon Jordan III Primary Care Provider Allergies Allergen (clinical drug ingredient) Drug/Non Drug Allergy documented on EMR Reaction Allergy Type Onset Date Status No Known Food Allergy Unknown Drug Allergy Active morphine Morphine Sulfate hives Drug Allergy Active Reason For Referral Reason Consult and treat Left side of face patch is getting bigger Diagnosis 1 History of melanoma (Z85.820) Referral Organization Odilon Jordan III, MD Referring Provider First Name Odilon Referring Provider Last Name Nikki Referring Provider Speciality Internal M edicine Referred Provider STRATUM, DERMATOLOGY Referred Provider Specialty Dermatology General Notes Constanza Pegcarleen ASMA 01:32:07 PM >Referral faxed Referral Priority Routine Referral Appointment Date 08/14/2025 Reason patient overdue for repeat 1 year colonoscopy abnormal prior colonoscopy in 2021 Diagnosis 1 Abnormal colonoscopy (R93.3) Referral Organization Odilon Jordan III, MD Referring Provider First Name Odilon Referring Provider Last Name Jordan Referring Provider Speciality Internal M edicine Referred Provider ELEN DENT Referred Provider Specialty Gastroentero logy General Notes Leatha Jesus CMA 11/14 02:43:44 PM > ref/progress note and last pathology from colonoscopy faxed . pt called and made aware of this. Referral Priority Routine Medications Medication SIG (Take, Route, Fr equency, Duration) Notes Start Date End Date Status Lidocaine 4 % 1 patch as needed Ex ternally tweice a day for 7 days 09/19/2025 Active dexAMETHasone 2 MG 1 tablet Orally twic e a day for 7 days 09/19/2025 Active Gabapentin 300 MG 1 capsule Orally thr ee times a day for 7 days 09/19/2025 Active Immunizations Vaccine Route Administration Date Status Comme nts DTaP IM Intramuscular 05/31/2018 Administered vaccin e given to patient [facility] Influenza, quad IM Intramuscular 09/25/2021 Administered Tetanus and Diphtheria Toxoids Adsorbed Unknown 02/19/2010 Administered Tetanus and Diphtheria Toxoids Adsorbed IM Intramuscular 11/13/2021 Administered COVID- 19 Vaccine Unknown 06/06/2022 Administered Influenza, quad Unknown 10/14/2022 Administered Social History Tobacco Use: Social History Observation [...] Never (0 point) Points 2 Interpretation Negative Problems Problem Type SNOMED Code ICD Code Onset Dates Problem Status W/U Status Risk Notes Problem 3880343 Former smoker (Z87.891) Active confirmed She is highly motivated not to smoke and we discussed a strategy for prevention of relapse in times of illness and distress. Problem 126864847 Overweight (BMI 25.0-29.9) (E66.3) Active confirmed Her body mass index is 25.09. We discussed diet and nutrition. We made a plan to lose weight at a rate of 1 pound per week. I recommended frequent physical activity. Problem 197891774 History of melanoma (Z85.820) Active confirmed There was no sign today of recurrence or new primary. Problem 82846744 Nephrolithiasis (N20.0) Active confirmed She is not experiencing renal colic at this time and has had no recent hematuria. Problem 428751860 Acute left-sided low back pain with left-sided sciatica (M54.42) Active confirmed This has occurred before. She is going to use heat and rest and ibuprofen, gabapentin and dexamethasone. A followup visit was arranged. Problem 21198216 Reactive depression (F32.9) Active confirmed Her depression is minimal today. She continues on her medication. She will notify me once if it recurs. 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 She feels healthy and well and no change in her treatment is needed or desired. Problem 914858158 Atypical ductal hyperplasia of left breast (N60.92) Active confirmed A breast exam today was normal. Vital Signs Heart Rate 78 /min 09/19/2025 Temperature 98.1 degrees Fahrenheit 09/19/2025 Respiratory Rate 14 /min 05/31/2025 Blood pressure diastolic 71 mm Hg 09/19/2025 Height 68 in 09/19/2025 Blood pressure systolic 110 mm Hg 09/19/2025 Weight 165 lbs 09/19/2025 BMI 25.09 kg/m2 09/19/2025 Encounters Encounter Location Date Provider Diagnosis Odilon Jordan III, MD [address] [place] [address] [place] [address] 05/31/2025 Odilon Jordan Encounter for screen ing [...] left-sided sciatica M54.42 and Neck pain M54.2 Odilon Jordan III, MD [address] [place] [address] [place] [address] 09/19/2025 Odilon Jordan Former smoker Z87.89 1 ; Overweight (BMI 25.0-29.9) E66.3 ; History of melanoma Z85.820 ; Reactive depression F32.9 ; Nephrolithiasis N20.0 ; Attention deficit hyperactivity disorder (ADHD), predominantly inattentive type F90.0 ; Atypical ductal hyperplasia of left breast N60.92 and Acute left-sided low back pain with left-sided sciatica M54.42 Odilon Jordan III, MD [address] [place] [address] [address] [place] [address] 07/27/2025 Odilon Jordan III, MD [address] [place] [address] [address] [place] [address] 11/14/2025 Odilon Jordan Assessments Encounter Date Diagnosis (ICD Code) Assessment Notes Treat ment Notes Treatment Clinical Notes 05/31/2025 Encounter for screening mammogram for malignant neoplasm of breast (ICD-10 - Z12.31) And annual screening mammogram has been scheduled. 05/31/2025 History of melanoma (ICD-10 - Z85.820) There was no sign today of recurrence or new primary. 09/19/2025 Former smoker (ICD-1 0 - Z87.891) [...] week. I recommended frequent physical activity. 05/31/2025 Overweight (BMI 25.0-29.9) (ICD-10 - E66.3) Her body mass index is 26. We discussed diet and nutrition. We made a plan to lose weight at a rate of 1 pound per week. I recommended frequent physical activity. 09/19/2025 History of melanoma (ICD-10 - Z85.820) There was no sign today of recurrence or new primary. 05/31/2025 Postmenopausal (ICD- 10 - Z78.0) I recommended STORE HAND in bone density test and annual mammograms. 09/19/2025 Reactive depression (ICD-10 - F32.9) Her depression is minimal today. She continues on her medication. She will notify me once if it recurs. 05/31/2025 Former smoker (ICD-1 0 - Z87.891) She is highly motivated not to smoke and we discussed a strategy for prevention of relapse in times of illness and distress. 09/19/2025 Nephrolithiasis (ICD-10 - N20.0) She is not experiencing renal colic at this time and has had no recent hematuria. 05/31/2025 Reactive depression (ICD-10 - F32.9) Her depression is minimal today. She continues on her medication. She will notify me once if it recurs. 09/19/2025 Attention deficit hyperactivity disorder (ADHD), predominantly inattentive type (ICD-10 - F90.0) She says that she is conducting all of the activities of daily life without impairment at this time. She feels healthy and well and no change in her treatment is needed or desired. 05/31/2025 Nephrolithiasis (ICD-10 - N20.0) She is not experiencing renal colic at this time and has had no recent hematuria. 09/19/2025 Atypical ductal hyperplasia of left breast (ICD-10 - N60.92) A breast exam today was normal. 05/31/2025 Attention deficit hyperactivity disorder (ADHD), predominantly inattentive type (ICD-10 - F90.0) She says that she is conducting all of the activities of daily life without impairment at this time. She feels healthy and well and no change in her treatment is needed or desired. 09/19/2025 Acute left-sided low back pain with left-sided sciatica (ICD-10 - M54.42) This has occurred before. She is going to use heat and rest and ibuprofen, gabapentin and dexamethasone. A followup visit was arranged. 05/31/2025 Atypical ductal hyperplasia of left breast [...] Order Date PROFILE, FASTING (COMPREHENSIVE METABOLI C) 06/07/2018 PROFILE, FASTING (COMPREHENSIVE METABOLI C) 09/22/2022 PROFILE, FASTING (COMPREHENSIVE METABOLI C) 01/09/2022 PROFILE, FASTING (COMPREHENSIVE METABOLI C) 08/09/2024 PROFILE, FASTING (COMPREHENSIVE METABOLI C) 05/31/2025 PROFILE, FASTING (COMPREHENSIVE METABOLI C) 07/19/2019 LIPID PANEL 07/19/2019 LIPID PANEL 06/07/2018 LIPID PANEL 09/22/2022 CBC w DIFF 05/31/2025 CBC w DIFF 07/19/2019 CBC w DIFF 01/09/2022 CBC w DIFF 08/09/2024 CBC w DIFF 06/07/2018 CBC w DIFF 09/22/2022 MRI LUMBAR SPINE NO CONTRAST 04/11/2024 BREAST STEREO BIOPSY SI 02/27/2023 MAMMOGRAM DIGITAL BILATERAL DIAGNO 04/20 MAMMOGRAM DIGITAL BILATERAL DIAGNO 01/09 MAMMOGRAM DIGITAL BILATERAL SCREEN 04/12 MAMMOGRAM DIGITAL BILATERAL SCREEN 06/07 MAMMOGRAM DIGITAL BILATERAL SCREEN 12/22 MAMMOGRAM DIGITAL UNILATERAL ZENAIDA LT 12/2021 US BREAST LEFT 01/09/2021 US BREAST LEFT 04/20/2020 US BREAST LEFT ([facility]) 08/01/20 Lipid Panel 05/31/2025 Lipid Panel 01/09/2022 Lipid Panel 08/09/2024 MM tomosynthesis screening BI 04/29/2024 MM tomosynthesis screening BI 05/31/2025 Next Appt Details Provider Name:Odilon Jordan , 12/01/2025 09:00:00 AM, [address] [place] [address] [address], [place], [address], Provider Name:Odilon Jordan , 06/05/2026 10:30:00 AM, [address] [place] [address] [address], [place], [address], Insurance Providers Payer Name Payer Address Payer Phone Subscriber Number Group Number Insured Name Patient Relationship to Insured Coverage Start Date Coverage End Date [address] [facility] [place] [phone] [id number] Gilma Campbell Self - patient is the insured Medical (General) History Medical History History ICD Code Depression, unspecified depression type F32.9 Nephrolithiasis N20.April. High-grade intraepithelial sq uamous lesion on Pap smear ADHD overweight former smoker which is still complaining menopause age 53 1999 excision melanoma lower left thigh apocrine metaplasia and ductal epithelia l hyperplasia, left breast Surgical History Surgery Date(Month/Year) Complete Hysterectomy 09/2024 Colposcopy, Dr. Davis, persistent high- grade dysplasia June 2024 colonoscopy at [facility] 07/2022 excision melanoma, left thigh 1999 cone biopsy of cervix, high risk squamou s intraepithelial lesion 617/20 breast biopsy
--- OUTSIDE RECORDS SUMMARY | 2025-11-29 07:31 | XMS_ITS | Clinical Summary ---
Author Organization [facility] Address [address] [place] [address] Care Team Providers Care Finish Production Manager Name Role Phone Unavailable Primary Care Provider Unavailabl e Social History Tobacco Use Types Packs/Day Years Used Date Smoking Tobacco: Never Assessed Comments Unknown Sex and Gender Information Value Date Recorded Sex Assigned at Not on file Legal Sex Female 6:40 PM EDT Gender Identity Not on file Sexual Orientation Not on file Plan of Treatment Health Maintenance Due Date Last Done Comments Hepatitis C Screening 1960 MMR (Born 1956-) 1960 DTaP/Tdap/Td (1 - Tdap) 1978 Mammogram/Breast Imaging 2000 Pneumococcal 50+ years (1 of 1 - PCV) 2010 Zoster (Shingrix) (1 of 2) 2010 COVID-19 Vaccine ( - 2024-2 6 season) 2025 Influenza (#1) 2025 Bone Density 2025 RSV (1 - 1-dose 75+ series) 2035 HPV Vaccine (No Doses Required) Completed Hep A Aged Out No longer eligi ble based on patient's age to complete this topic Hep B Aged Out No longer eligi ble based on patient's age to complete this topic Hib Aged Out No longer eligi ble based on patient's age to complete this topic Meningococcal ACWY Aged Out No longer eligible based on patient's age to complete this topic Pap Smear Discontinued Zoster (Zostavax) Discontinued
--- OUTSIDE RECORDS SUMMARY | 2025-11-29 07:31 | XMS_ITS | Encounter Summary ---
Author Organization [facility] Address [address] [place] [address] Phone Care Team Providers Care Trencher Driver Name Role Phone Odilon Jordan MD Primary Care Provider [phone] Rd Davis MD Unavailable [phone] Encounter Details Date Type Department Care Team (Late st Contact Info) Description 10/14/2024 Procedure Pass OR Admitting Dept - Virtual Department [address] [place] [address] Social History Tobacco Use Types Packs/Day Years Used Date Smoking Tobacco: Never Smokeless Tobacco: Never Alcohol Use Standard Drinks/Week Comments Yes 0 (1 standard drink = 0.6 oz pur e alcohol) 2 drinks a month Education Answer Date Recorded Are you interested in more education? Not on edilia e 03/27/2023 Are you concerned about learning? Not on file 03/27/2023 No 03/27/2023 No 03/27/2023 Food Answer Date Recorded Within the past 6 months we worried whether our food would run out before we got money to buy more. Never True 10/14/2024 Within the past 6 months the food we bought just didn't last and we didn't have enough money to get more. Never True Residential Stability Answer Date Recor ded What is your housing situation today? I have megan sing 10/14/2024 How many times have you move d in the past 12 months? Zero (I did not move) 10/14/2024 Paying for Meds Answer Date Recorded Do you have trouble paying for medicines? No 10/14/2024 Paying Utility Bills Answer Date Record ed Do you have trouble paying your heating or elect ricity bill? No 10/14/2024 Transportation Answer Date Recorded Has the lack of transportati on kept you from medical appointments or from getting medications? No 10/14/2024 Digital Access Answer Date Recorded No 10/14/2024 Yes 10/14/2024 Do you have reliable internet access at home? Ye s 10/14/2024 Do you have a device (e.g., phone, tablet, computer) with a working camera? Yes 10/14/2024 Intimate Partner Violence Answer Date R ecorded Are you denied basic needs s uch as food, clothing, or medical care? No 10/14/2024 In the past 12 months have y ou been in a relationship with a person who hurts, threatens, or tries to control you? No 10/14/2024 Are you denied basic needs s uch as food, clothing, or medical care? No 10/14/2024 In the past 12 months have y ou been in a relationship with a person who hurts, threatens, or tries to control you? No 10/14/2024 Comments No Sex and Gender Information Value Date Recorded Sex Assigned at Not on file Legal Sex Female 10:34 PM EDT Gender Identity Not on file Sexual Orientation Not on file documented as of this encounter Plan of Treatment Not on file documented as of this encounter Visit Diagnoses Not on filedocumented in this encounter Care Teams Trencher Driver Relationship Specialty Start Date End Date Odilon Jordan MD [address] [place] [address] [place] [address] PCP - General Medical Oncology 08/06/18 Rd Davis MD [address] [place] [address], [facility] [address] [place] [address] Obstetrics and Gynecology 06/27/24 documented as of this encounter Additional Source Comments The information contained in this document represents components of the legal health record. It is not the complete legal health record.[facility]
--- OUTSIDE RECORDS SUMMARY | 2025-11-29 07:31 | XMS_ITS | Clinical Summary ---
Author Organization [facility] Address [address] [place] [address] Phone Care Team Providers Care Assistant Cook Name Role Phone Odilon Jordan MD Primary Care Provider [phone] Rd Davis MD Unavailable [phone] Allergies Active Allergy Reactions Criticality Noted Date Comments Morphine Hives 07/15/2017 Medications MULTIVITAMIN ORAL Take 5 mL by mouth daily. Active Active Problems Problem Noted Date Diagnosed Date HGSIL (high grade squamous i ntraepithelial lesion) on Pap smear of cervix 10/15/2024 Papanicolaou smear of cervix with low grade squamous intraepithelial lesion (LGSIL) 07/12/2024 Resolved Problems Problem Noted Date Diagnosed Date Resolved Date High grade squamous intraepi thelial cervical dysplasia 10/14/2024 10/15/2024 HGSIL (high grade squamous i ntraepithelial lesion) on Pap smear of cervix 10/14/2024 4 Immunizations Immunization Administration Dates Next Due COVID-19 (Pre-09/21) Vida Vaccine, rS-Ad26, PF 03/04/2021 DTaP 05/31/2018 INFLUENZA, SPLIT VIRUS, TRIVALENT PF 10/15/2024( Deferred: Patient Refused) Influenza Quadrivalent Prese rvative Free IM 09/25/2021,09/25/2018 Td (adult) 5 Lf Tetanus Toxo id, PF, Adsorbed 11/13/2021,02/19/2010 Family History Medical History Relation Comments Parkinson's disease Father Other Mother glioblastoma Relation Status Comments Father Mother Social History Tobacco Use Types Packs/Day Years [...] on file Sexual Orientation Not on file Last Filed Vital Signs Vital Sign Reading Time Taken Comments Blood Pressure 114/68 11/29/2024 4:24 PM EST Pulse 59 10/15/2024 12:34 PM EST Temperature 35.8 C (96.4 F) 10/15/2024 12:34 PM EST Respiratory Rate 18 10/15/2024 12:34 PM EST Oxygen Saturation 98% 10/15/2024 12:34 PM EST Inhaled Oxygen Concentration - - Weight 80.7 kg (178 lb) 11/29/2024 4:24 PM EST Height 172.7 cm (5' 8 ) 11/29/2024 4:24 PM EST Body Mass Index 27.06 11/29/2024 4:24 PM EST Plan of Treatment Health Maintenance Due Date Last Done Comments LIPID PANEL 1960 DEPRESSION SCREENING 1972 HEPATITIS C SCREENING 1978 HIV ONE-TIME SCREENING (18-65 YEARS) 1978 SCREENING FOR DIABETES 1995 MAMMOGRAM 2000 COLOGUARD 2005 COLONOSCOPY 2005 COLORECTAL CANCER SCREENING 2005 FIT TEST 2005 FOBT 2005 SIGMOIDOSCOPY 2005 VIRTUAL COLONOSCOPY 2005 PNEUMOCOCCAL VACCINES (50+ years) (1 of 1 - PCV) 2010 ZOSTER VACCINES (1 of 2) 2010 PAP SMEAR 06/27/2025 06/27/2024, 11/08/2021 INFLUENZA VACCINE (#1) 2025 , 10/08/2023, 10/14/2022, Additional history exists COVID-19 VACCINE (2024- season) 2025 11/18/2024, 10/08/2023, 10/14/2022, Additional history exists OSTEOPOROSIS SCREENING INITIAL (ONE-TIME) 2025 Adult Td,Tdap Booster 11/13/2031 11/13/2021, 010 RSV VACCINE (1 - 1-dose 75+ series) 2035 SMOKING STATUS SCREENING (Once After 26 Yrs) Completed 11/01/2024 HEPATITIS A VACCINES Aged Out No long er eligible based on patient's age to complete this topic HIB VACCINES Aged Out No longer eligi ble based on patient's age to complete this topic MENINGOCOCCAL VACCINES (ACWY) Aged Out No longer eligible based on patient's age to complete this topic MENINGOCOCCAL VACCINES (B) Aged Out N o longer eligible based on patient's age to complete this topic Medical Devices Not on file Procedures Procedure Name Priority Date/Time Associated Diagnosis Comments PAP TEST Routine 06/27/2024 12:00 AM EDT from Last 3 Months or Most Recently Relevant to Health Maintenance Results * Pap Test (06/27/2024 12:00 AM EDT) [place] [address] Gum Dipper: Aleah Soto MD DRY STARCH OPERATOR Cytology Report FINAL DIAGNOSIS A. PAP SMEAR (THIN PREP) CE: SPECIMEN ADEQUACY: Satisfactory for evaluation; transformation zone present. INTERPRETATION: EPITHELIAL CELL ABNORMALITY - SQUAMOUS. Low grade squamous intraepithelial lesion, cannot exclude high grade intraepithelial lesion. This specimen was analyzed by the automated ThinPrep Imaging System ([employer].) and manually rescreened by a geospatial specialist and/or pathologist. Electronically Signed Out By: MD Maribel Turner CT(ASCP) By his/her signature above, the pathologist listed as making the Final Diagnosis certifies that he/she has personally reviewed this case and confirmed or corrected the diagnosis. The Pap test is a screening test primarily for squamous cancers and precursors and has associated false-negative and false-positive results. New technologies such as liquid-based preparations may decrease but will not eliminate all false-negative results. Regular sampling and follow-up of unexplained clinical signs and symptoms are recommended to minimize false negative results. PROCEDURES/ADDENDA HPV Testing (Requested) Ordered Date: 06/28/2024 A. PAP SMEAR (THIN PREP) CE: Human Papilloma Virus Test NEGATIVE for high-risk Human Papilloma Virus types 16, 18, 45 and the Other high risk probe set (Includes 31, 33, 35, 39, 51, 52, 56, 58, 59, 66, 68) Note: Testing performed by [employer] Onclarity HR-HPV analysis. Clinical correlation is advised. This HPV test was performed at [address] This test has been FDA approved for both SurePath and ThinPrep cervical cytology specimens. The accuracy and precision of this test for all other specimen sources has been verified in the Cytopathology Laboratory of the [facility] and has not been cleared or approved by the U.S. Food and Drug Administration. Clinical correlation is advised. CLINICAL HISTORY Date of Last Menstrual Period: Not Provided Menstrual History: Post Menopausal Other Clinical Conditions: Screening Pap Abnormal PAP: LSIL, 2020 Abnormal BX: HOLLAND 2021 SPECIMEN SOURCE A: PAP SMEAR (THIN PREP) CE Patient Name: ALICIA CAMPBELL : 1960 (Age: 63) Sex: F Institution: [facility] Location: [facility] Date of Collection: 06/27/2024 Date of Reported: 07/04/2024 16:08 Results to: Rd Davis MD, BS [facility] Final Diagnosis A. PAP SMEAR (THIN PREP) CE: SPECIMEN ADEQUACY: Satisfactory for evaluation; transformation zone present. INTERPRETATION: EPITHELIAL CELL ABNORMALITY - SQUAMOUS. Low grade squamous intraepithelial lesion, cannot exclude high grade intraepithelial lesion. This specimen was analyzed by the automated ThinPrep Imaging System ([employer].) and manually rescreened by a geospatial specialist and/or pathologist. [facility] Results\Inte rpretation A. PAP SMEAR (THIN PREP) CE: Human Papilloma Virus TestNEGATIVE for high-risk Human Papilloma Virus types 16, 18, 45 and the Other high risk probe set (Includes 31, 33, 35, 39, 51, 52, 56, 58, 59, 66, 68)Note: Testing performed by [employer] HR-HPV analysis. Clinical correlation is advised. This HPV test was performed at [address] This test has been FDA approved for both SurePath and ThinPrep cervical cytology specimens. The accuracy and precision of this test for all other specimen sources has been verified in the Cytopathology Laboratory of the [facility] and has not been cleared or approved by the U.S. Food and Drug Administration. Clinical correlation is advised. [facility] Conversion Type (Conversion Source) 06/27/2024 06/28/2024 9:[address] Davis MD CYTOLOGY ORDERABLES Edited Re [email or web address] - Final [facility] [address] [place] [address] from Last 3 Months or Most Recently Relevant to Health Maintenance Insurance [facility] HMO Advance Directives For more information, please contact: [phone] (9AM - 5PM Goldie/[facility], Thursday-Thursday) * Full Code (Latest Code Status on File) Date Activated Date Inactivated Comments 10/14/2024 6:30 PM Question Answer Comments Code Status Confirmed With: Patient * Full Code Date Activated Date Inactivated Comments 10/14/2024 6:11 AM 10/14/2024 6:30 PM Question Answer Comments Code Status Confirmed With: Patient Care Teams Assistant Cook Relationship Specialty Start Date End Date Odilon Jordan MD [address] [place] [address] [address] [place] [address] PCP - General Medical Oncology 08/06/18 Rd Davis MD [address] [place] [address], [facility] [address] [place] [address] Obstetrics and Gynecology 06/27/24 Additional Source Comments The information contained in this document represents components of the legal health record. It is not the complete legal health record.[facility]
--- OUTSIDE RECORDS SUMMARY | 2025-11-29 07:31 | XMS_ITS | Patient Health Record ---
Author Organization [facility] Address [address] [place] [address] Care Team Providers Care Franchise Sales Manager Name Role Phone Abhay Mazariegos Jr Reason For Referral No Information Plan Of Treatment No Information
[2025-11-29 07:44] LABS: MANUAL DIFF FLAG NO
[2025-11-29 08:16] LABS: Hematocrit 40.6 % (37.0-47.0); Hemoglobin 13.4 g/dl (12.0-16.0); Imm Gran Abs Auto 0.01 X10*3/uL (0.00-0.03); Imm Gran Pct Auto 0.1 % (0.0-0.4); Lymphocytes Absolute Auto 2.5 X10*3/uL (1.2-4.9); Mean Corpuscular HGB Conc 33.0 g/dl (31.0-35.0); Mean Corpuscular Hemoglobin 30.4 pg (27.0-33.0); Mean Corpuscular Volume 92.1 fL (80.0-98.0); NRBC Abs Auto 0.000 X10*3/uL (0.0-0.012); NRBC Pct Auto 0.0 /100WBC (0.0-0.2); Platelet Count 312 X10*3/uL (160-400); Red Blood Count 4.41 X10*6/uL (4.20-5.50); White Blood Count 6.9 X10*3/uL (4.8-10.8)
[2025-11-29 08:41] LABS: Alanine Aminotransferase 15 U/L (0-31); Albumin Level 4.3 g/dL (3.5-5.0); Alkaline Phosphatase 73 U/L (39-117); Anion Gap 8 (12-20); Aspartate Amino Transferase 18 U/L (5-31); Blood Urea Nitrogen 24 mg/dL (9-16); Calcium 9.4 mg/dL (8.4-10.2); Carbon Dioxide 28 mmol/L (22-29); Chloride 109 mmol/L (96-108); Cholesterol 215 mg/dL (<200); Estimated Glomerular Filt Rate > 60; HDL Cholesterol 64 mg/dL (>40); Potassium 4.1 mmol/L (3.3-5.1); Sodium 141 mmol/L (135-145); Total Protein 6.8 g/dL (6.5-8.0); Triglycerides 54 mg/dL (<150)
== END 2025-11-29 07:30 | disposition home or self-care (01) ==
LOC: HO.LAB 07:29
PROVIDERS: PCP Internal Medicine Medical Oncology; Visit Provider Internal Medicine Medical Oncology
DX: Z00.00 Encounter for general adult medical examination without abnormal findings (principal); E66.3 Overweight; Z78.0 Asymptomatic menopausal state
CPT/HCPCS: 36415; 80053; 80061; 85025